=== PATIENT | female | born 1945 | race Caucasian/White ===

== ENCOUNTER 2017-02-16 16:15 | Emergency (ER) | payer MEDICARE ==
[2017-02-16] MEDS ORDERED: SODIUM CHLORIDE 0.9% 1,000 ML IV STA ×2 (16:27)
--- NOTE | 2017-02-16 16:30 | ED ---
Syncope HPI - General Stated Complaint: syncope Time Seen by Provider: 02/16/17 16:15 Source: patient, EMS, RN notes reviewed Mode of arrival: EMS - History of Present Illness Initial Comments: This is a 71-year-old female who was brought in by EMS for evaluation was syncopal episode. She gave blood yesterday she was [place] outside [place] quite a period of time she did not drink much fluid today she apparently passed out and was assisted down the ground by bystanders. She was unresponsive for about a minute and then came to she is brought here by EMS for evaluation she complains of no pain no head neck or back pain focal loss of function to her upper or lower extremities no urinary or fecal incontinence no palpitations or other symptoms. She's never had this happen before. MD Complaint: loss of consciousness - Related Data Home Medications Medication Instructions Recorded Confirmed Aspirin EC [Ecotrin Low Dose] 81 mg PO DAILY 02/16/17 02/16/17 Losartan/Hydrochlorothiazide 1 tab PO DAILY 02/16/17 02/16/17 [Hyzaar 100-25 Tablet] Sertraline HCl [Zoloft] 150 mg PO DAILY 02/16/17 02/16/17 Allergies Allergy/AdvReac Type Severity Reaction Status Date / Time bee venom protein (honey bee) Allergy Anaphylaxis Verified 02/16/17 16:34 Sulfa (Sulfonamide Allergy Rash/Hives Verified 02/16/17 16:34 Antibiotics) Review of Systems ROS Statement: Those systems with pertinent positive or pertinent negative responses have been documented in the HPI. ROS Other: All systems not noted in ROS Statement are negative. General Exam - General Exam Comments Initial Comments: Physical well-developed well-nourished awake alert oriented 3 female General appearance: alert, in no apparent distress Head exam: Present: atraumatic, normocephalic, normal inspection Eye exam: Present: normal appearance, PERRL, EOMI. Absent: scleral icterus, conjunctival injection, periorbital swelling ENT exam: Present: mucous membranes dry Neck exam: Present: normal inspection. Absent: tenderness, meningismus, lymphadenopathy Respiratory exam: Present: normal lung sounds bilaterally. Absent: respiratory distress, wheezes, rales, rhonchi, stridor Cardiovascular Exam: Present: regular rate, normal rhythm, normal heart sounds. Absent: systolic murmur, diastolic murmur, rubs, gallop, clicks GI/Abdominal exam: Present: soft, normal bowel sounds. Absent: distended, tenderness, guarding, rebound, rigid Extremities exam: Present: normal inspection, full ROM, normal capillary refill. Absent: tenderness, pedal edema, joint swelling, calf tenderness Back exam: Present: normal inspection Neurological exam: Present: alert, oriented X3, CN II-XII intact Psychiatric exam: Present: normal affect, normal mood Skin exam: Present: warm, dry, intact, normal color. Absent: rash Course Vital Signs 02/16/17 02/16/17 16:18 17:09 Temperature 98.4 F Pulse Rate 87 74 Respiratory 20 18 Rate Blood Pressure 133/59 146/60 O2 Sat by Pulse 98 99 Oximetry EKG Findings - EKG Results: EKG: interpreted by GERA, sinus rhythm (Sinus rhythm a rate of 85 SC interval 148 QRS 104 QT since QTC of 370/449 left exodeviation no acute ST-T wave changes.) Medical Decision Making - Medical Decision Making Reevaluate the patient Pfizer be awake alert oriented 3 she is in no distress she feels much improved after IV hydration. We did discuss the importance of oral fluids. Her laboratory does show evidence of some renal insufficiency. She was advised of this. She will be discharged with her daughter she is to follow-up with her doctor and return when necessary again she is totally asymptomatic the presentation is consistent with a vasovagal episode. - Lab Data Result diagrams: 02/16/17 16:02 02/16/17 16:02 Lab Results 02/16/17 02/16/17 02/16/17 Range/Units 16:02 16:02 16:02 WBC 9.1 (3.8-10.6) k/uL RBC 4.49 (3.80-5.40) m/uL Hgb 14.0 (11.4-16.0) gm/dL Hct 41.8 (34.0-46.0) % MCV 93.1 (80.0-100.0) fL MCH 31.2 (25.0-35.0) pg MCHC 33.5 (31.0-37.0) g/dL RDW 12.8 (11.5-15.5) % Plt Count 176 (150-450) k/uL Neutrophils % 71 % Lymphocytes % 20 % Monocytes % 6 % Eosinophils % 0 % Basophils % 1 % Neutrophils # 6.5 (1.3-7.7) k/uL Lymphocytes # 1.8 (1.0-4.8) k/uL Monocytes # 0.5 (0-1.0) k/uL Eosinophils # 0.0 (0-0.7) k/uL Basophils # 0.1 (0-0.2) k/uL PT (9.0-12.0) sec INR (<1.2) APTT (22.0-30.0) sec Sodium 142 (137-145) mmol/L Potassium 4.0 (3.5-5.1) mmol/L Chloride 108 H (98-107) mmol/L Carbon Dioxide 23 (22-30) mmol/L Anion Gap 11 mmol/L BUN 37 H (7-17) mg/dL Creatinine 1.53 H (0.52-1.04) mg/dL Est GFR (MDRD) Af Amer 40 (>60 ml/min/1.73 sqM) Est GFR (MDRD) Non-Af 33 (>60 ml/min/1.73 sqM) Glucose 115 H (74-99) mg/dL Calcium 9.5 (8.4-10.2) mg/dL Magnesium 2.0 (1.6-2.3) mg/dL Total Bilirubin 0.4 (0.2-1.3) mg/dL AST 22 (14-36) U/L ALT 28 (9-52) U/L Alkaline Phosphatase 77 (38-126) U/L Total Creatine Kinase 98 (30-135) U/L CK-MB (CK-2) 2.2 (0.0-2.4) ng/mL CK-MB (CK-2) Rel Index 2.2 Troponin I <0.012 (0.000-0.034) ng/mL Total Protein 6.4 (6.3-8.2) g/dL Albumin 3.9 (3.5-5.0) g/dL Urine Color Urine Appearance (Clear) Urine pH (5.0-8.0) Ur Specific [place] (1.001-1.035) Urine Protein (Negative) Urine Glucose (UA) (Negative) Urine Ketones (Negative) Urine Blood (Negative) Urine Nitrite (Negative) Urine Bilirubin (Negative) Urine Urobilinogen (<2.0) mg/dL Ur Leukocyte Esterase (Negative) Urine RBC (0-5) /hpf Urine WBC (0-5) /hpf Ur Squamous Epith Cells (0-4) /hpf Urine Bacteria (None) /hpf Cellular Casts (0) /lpf Hyaline Casts (0-2) /lpf Granular Casts (0) /lpf Urine Mucus (None) /hpf 02/16/17 02/16/17 Range/Units 16:02 16:46 WBC (3.8-10.6) k/uL RBC (3.80-5.40) m/uL Hgb (11.4-16.0) gm/dL Hct (34.0-46.0) % MCV (80.0-100.0) fL MCH (25.0-35.0) pg MCHC (31.0-37.0) g/dL RDW (11.5-15.5) % Plt Count (150-450) k/uL Neutrophils % % Lymphocytes % % Monocytes % % Eosinophils % % Basophils % % Neutrophils # (1.3-7.7) k/uL Lymphocytes # (1.0-4.8) k/uL Monocytes # (0-1.0) k/uL Eosinophils # (0-0.7) k/uL Basophils # (0-0.2) k/uL PT 10.4 (9.0-12.0) sec INR 1.0 (<1.2) APTT 22.3 (22.0-30.0) sec Sodium (137-145) mmol/L Potassium (3.5-5.1) mmol/L Chloride (98-107) mmol/L Carbon Dioxide (22-30) mmol/L Anion Gap mmol/L BUN (7-17) mg/dL Creatinine (0.52-1.04) mg/dL Est GFR (MDRD) Af Amer (>60 ml/min/1.73 sqM) Est GFR (MDRD) Non-Af (>60 ml/min/1.73 sqM) Glucose (74-99) mg/dL Calcium (8.4-10.2) mg/dL Magnesium (1.6-2.3) mg/dL Total Bilirubin (0.2-1.3) mg/dL AST (14-36) U/L ALT (9-52) U/L Alkaline Phosphatase (38-126) U/L Total Creatine Kinase (30-135) U/L CK-MB (CK-2) (0.0-2.4) ng/mL CK-MB (CK-2) Rel Index Troponin I (0.000-0.034) ng/mL Total Protein (6.3-8.2) g/dL Albumin (3.5-5.0) g/dL Urine Color Yellow Urine Appearance Cloudy H (Clear) Urine pH 6.0 (5.0-8.0) Ur Specific [place] 1.016 (1.001-1.035) Urine Protein 1+ H (Negative) Urine Glucose (UA) Negative (Negative) Urine Ketones Negative (Negative) Urine Blood Negative (Negative) Urine Nitrite Negative (Negative) Urine Bilirubin Negative (Negative) Urine Urobilinogen 2.0 (<2.0) mg/dL Ur Leukocyte Esterase Large H (Negative) Urine RBC 2 (0-5) /hpf Urine WBC 14 H (0-5) /hpf Ur Squamous Epith Cells 11 H (0-4) /hpf Urine Bacteria Few H (None) /hpf Cellular Casts 5 (0) /lpf Hyaline Casts 156 H (0-2) /lpf Granular Casts 7 (0) /lpf Urine Mucus Few H (None) /hpf - Radiology Data Radiology results: report reviewed, image reviewed Disposition Clinical Impression: Vasovagal syncope, Dehydration Disposition: HOME SELF-CARE Condition: Good Referrals: Nonstaff,Physician [REFERRING] - 1-2 days
[2017-02-16 16:41] LABS: Basophils # (A) 0.1 k/uL (0-0.2); Basophils % (A) 1 %; CH 30.2; CHCM 32.6; Eosinophils % (A) 0 %; HCT 41.8 % (34.0-46.0); HDW 2.07; Luc # (Auto) 0.25; Luc % (Auto) 3; Lymphocytes # (A) 1.8 k/uL (1.0-4.8); Lymphocytes % (A) 20 %; MCH 31.2 pg (25.0-35.0); MCHC 33.5 g/dL (31.0-37.0); MCV 93.1 fL (80.0-100.0); Mean Platelet Volume 10.1; Monocytes # (A) 0.5 k/uL (0-1.0); Monocytes % (A) 6 %; Neutrophils # (A) 6.5 k/uL (1.3-7.7); Neutrophils % (A) 71 %; RBC 4.49 m/uL (3.80-5.40); RDW 12.8 % (11.5-15.5); WBC 9.1 k/uL (3.8-10.6); WBC (Perox) 9.06
[2017-02-16 16:50] LABS: Partial Thromboplastin Time 22.3 sec (22.0-30.0); Prothrombin Time 10.4 sec (9.0-12.0)
[2017-02-16 16:58] LABS: Calcium 9.5 mg/dL (8.4-10.2); Total Bilirubin 0.4 mg/dL (0.2-1.3); Total Protein 6.4 g/dL (6.3-8.2)
[2017-02-16 17:01] LABS: Creatine Kinase 98 U/L (30-135)
[2017-02-16 17:04] LABS: Appearance,Urine Cloudy (Clear); Bacteria,Urine Few /hpf; Bilirubin,Urine Negative (Negative); Glucose,Urine (UA) Negative (Negative); Granular Casts,Urine 7 /lpf (0); Ketones,Urine Negative (Negative); Leukocyte Esterase,Urine Large (Negative); Mucus,Urine Few /hpf; Nitrite,Urine Negative (Negative); Particle Count 13552; Protein,Urine 1+ (Negative); RBC,Urine 2 /hpf (0-5); Specific Gravity,Urine 1.016 (1.001-1.035); Squamous Epithelial Cell,Urine 11 /hpf (0-4); UA Billing (MACRO vs. MICRO) MICRO; WBC,Urine 14 /hpf (0-5)
[2017-02-16 17:14] LABS: Creatine Kinase MB 2.2 ng/mL (0.0-2.4); Troponin I <0.012 ng/mL (0.000-0.034)
--- NOTE | 2017-02-16 17:29 | XR ---
EXAMINATION TYPE: XR chest 2V DATE OF EXAM: 02/16/2017 COMPARISON: NONE HISTORY: Syncope TECHNIQUE: Frontal and lateral views of the chest are obtained. FINDINGS: There is no focal air space opacity, pleural effusion, or pneumothorax seen. The cardiac silhouette size is within normal limits. The osseous structures are intact. IMPRESSION: No acute cardiopulmonary process.
[2017-02-16 18:26] VITALS: BP 144/73; PULSE 64; RESP 16; TEMP 98
== END 2017-02-16 18:26 | disposition home or self-care (01) ==
LOC: EC 16:15
DX: E86.0 Dehydration (principal); N28.9 Disorder of kidney and ureter, unspecified; I10 Essential (primary) hypertension; F32.9 Major depressive disorder, single episode, unspecified; Z79.82 Long term (current) use of aspirin; Z79.899 Other long term (current) drug therapy; Z88.2 Allergy status to sulfonamides; Z91.030 Bee allergy status
CPT/HCPCS: 36415; 71020; 80053; 81001; 82550; 82553; 83735; 84484; 85025; 85610; 85730; 93005; 96360; 96361; 99284

== ENCOUNTER 2019-10-09 14:00 | Inpatient (IN) | payer MEDICARE, OTHER ==
[2019-10-09] MEDS ORDERED: cefTRIAXone IN SWFI 1,000 MG/10 ML SYRINGE IVP STA ×2 (14:44→19:05)
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
--- NOTE | 2019-10-09 15:08 | XR ---
EXAMINATION TYPE: XR pelvis AP view DATE OF EXAM: 10/09/2019 CLINICAL HISTORY: Pelvic pain after fall TECHNIQUE: A single AP view of the pelvis is obtained. COMPARISON: None. FINDINGS: There is no acute fracture/dislocation evident in the pelvis. The hip and sacroiliac join ts appear symmetric and unremarkable. The overlying soft tissue appears unremarkable. Slight scleros is is noted of the left pubic bone in comparison the right. Degenerative changes of the lumbosacral j unction. IMPRESSION: There is no acute fracture or dislocation in the pelvis. Slight sclerosis of the left pu bic bone in comparison to the right. Nonemergent CT pelvis or nuclear medicine bone scan could furthe r assess this finding.
--- NOTE | 2019-10-09 15:09 | XR ---
EXAMINATION TYPE: XR chest 1V portable DATE OF EXAM: 10/09/2019 COMPARISON: 02/16/2017 HISTORY: Chest pain after fall TECHNIQUE: Single frontal view of the chest is obtained. FINDINGS: There are low lung volumes in comparison the prior exaggerated in the pulmonary vasculature and cardiomediastinal silhouette size. There is no focal air space opacity, pleural effusion, or pn eumothorax seen. The cardiac silhouette size is mildly enlarged. The osseous structures are intact . IMPRESSION: Low lung volumes exaggerate the pulmonary vasculature and cardiomediastinal silhouette s ize. No acute cardiopulmonary process.
--- NOTE | 2019-10-09 15:42 | CT ---
EXAMINATION TYPE: CT brain keithine wo con DATE OF EXAM: 10/09/2019 COMPARISON: None HISTORY: Fall with head injury CT DLP: 1490.8 mGycm Automated exposure control for dose reduction was used. TECHNIQUE: CT scan of the head and cervical spine are performed without contrast. FINDINGS: There is no acute intracranial hemorrhage, mass effect, or midline shift identified. The ventricles and sulci are compatible with moderate degenerative change. There is low-attenuation in t he right frontal lobe suggestive of previous infarct. Nonspecific faint changes in the white matter a re suggestive of remote microvascular ischemia.. The globes are intact and the visualized sinuses ar e clear. Assessment cervical spinal canal is limited due to artifact and resolution. Moderate to severe degene rative disc disease and hypertrophic changes at C5-C6. Mild bilateral foraminal encroachment. Apical pleural thickening and areas of subsegmental consolidation are noted likely in the basis of atelectas is. IMPRESSION: 1. There is no acute fracture or dislocation evident in the cervical spine. Degenerative changes with foraminal encroachment C5-C6. Follow-up with MRI as clinically warranted 2. No acute intracranial hemorrhage, mass effect, or midline shift is seen. Degenerative changes with remote infarct right frontal lobe.
[2019-10-09 16:07] LABS: Basophils % (A) 0 %; Eosinophils % (A) 0 %; HCT 44.3 % (34.0-46.0); HGB 14.4 gm/dL (11.4-16.0); Lymphocytes # (A) 0.3 k/uL (1.0-4.8); Lymphocytes % (A) 2 %; MCH 29.9 pg (25.0-35.0); MCHC 32.5 g/dL (31.0-37.0); MCV 91.9 fL (80.0-100.0); Mean Platelet Volume 9.8; Monocytes # (A) 0.6 k/uL (0-1.0); Monocytes % (A) 3 %; Neutrophils # (A) 16.6 k/uL (1.3-7.7); Neutrophils % (A) 93 %; Platelet Count 126 k/uL (150-450); RBC 4.82 m/uL (3.80-5.40); RDW 13.2 % (11.5-15.5); WBC 17.8 k/uL (3.8-10.6)
[2019-10-09 16:14] LABS: Calcium 9.2 mg/dL (8.4-10.2); Potassium 4.4 mmol/L (3.5-5.1)
[2019-10-09] MEDS ORDERED: SODIUM CHLORIDE 0.9% 1,000 ML IV STA (16:41)
[2019-10-09 18:02] LABS: Appearance,Urine Turbid (Clear); Bacteria,Urine Many /hpf; Bilirubin,Urine Negative (Negative); Blood,Urine Moderate (Negative); Budding Yeast,Urine Moderate /hpf; Color,Urine Yellow; Glucose,Urine (UA) Negative (Negative); Hyaline Casts,Urine 6 /lpf (0-2); Ketones,Urine Negative (Negative); Leukocyte Esterase,Urine Large (Negative); Mucus,Urine Rare /hpf; Nitrite,Urine Negative (Negative); PH, Urine 5.5 (5.0-8.0); Protein,Urine 2+ (Negative); RBC,Urine 18 /hpf (0-5); Specific Gravity,Urine 1.019 (1.001-1.035); Urobilinogen,Urine <2.0 mg/dL (<2.0); WBC,Urine >182 /hpf (0-5)
[2019-10-09] MEDS ORDERED: ONDANSETRON 4 MG/2 ML VIAL IVP PRN (18:10)
[2019-10-09] MEDS ORDERED: NALOXONE 0.4 MG/ML 1 ML VIAL IV PRN (18:10)
[2019-10-09] MEDS: ACETAMINOPHEN TAB 325 MG TAB PO PRN (19:11)
[2019-10-10] MEDS: SODIUM CHLORIDE 0.9% 1,000 ML IV SCH ×4 (00:27→19:57)
[2019-10-10] MEDS: ACETAMINOPHEN TAB 325 MG TAB PO PRN ×3 (02:34→17:32)
[2019-10-10] MEDS ORDERED: SERTRALINE 100 MG TAB PO SCH (09:00)
[2019-10-10] MEDS ORDERED: cefTRIAXone IN SWFI 1,000 MG/10 ML SYRINGE IVP SCH (09:00)
[2019-10-10] MEDS: CLOPIDOGREL 75 MG TAB PO SCH (09:11)
[2019-10-10] MEDS: ATORVASTATIN 20 MG TAB PO SCH (09:11)
[2019-10-10] MEDS: SERTRALINE 50 MG TAB PO SCH (09:11)
[2019-10-10 09:20] LABS: HCT 40.3 % (34.0-46.0); HGB 12.7 gm/dL (11.4-16.0); MCH 29.1 pg (25.0-35.0); MCHC 31.5 g/dL (31.0-37.0); MCV 92.4 fL (80.0-100.0); RBC 4.36 m/uL (3.80-5.40); RDW 13.2 % (11.5-15.5); WBC 14.6 k/uL (3.8-10.6)
[2019-10-10 09:30] LABS: Albumin 3.1 g/dL (3.5-5.0); Calcium 8.5 mg/dL (8.4-10.2); Potassium 4.3 mmol/L (3.5-5.1); Total Bilirubin 0.5 mg/dL (0.2-1.3); Total Protein 6.2 g/dL (6.3-8.2)
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
[2019-10-10 09:45] LABS: Platelet Count 133 k/uL (150-450)
[2019-10-10] MEDS: PANTOPRAZOLE 40 MG TABLET PO SCH (10:39)
[2019-10-10] MEDS ORDERED: ARTIFICIAL TEARS-HYPROMELLOSE DROPS 15 ML BTL BOTH EYES PRN (11:47)
[2019-10-10] MEDS: GABAPENTIN 300 MG CAP PO SCH (19:58)
[2019-10-10] MEDS: HEPARIN SODIUM,PORCINE 5,000 UNIT/ML 1 ML VIAL SQ SCH (19:59)
--- NOTE | 2019-10-11 00:21 | P.CONS ---
History of Present Illness - Reason for Consult Consult date: 10/10/19 UTI Requesting physician: Phani Estevez - Chief Complaint FALL x 1 day and urinary frequency and burning x few days - History of Present Illness Patient is a 74-year-old female presenting to the ER at [facility] with chief complaints of fall landing on her left side and unable to stand up the patient also been complaining of urinary burning frequency and some suprapubic discomfort but no flank pain some nausea but no vomiting denies having any chest pain shortness of breath or cough with the symptom the patient was evaluated by the ER physician on arrival to the ER patient did have a low- grade fever of 99.9 patient did have elevated white count 17,000 creatinine was 2.83 urine was positive with large leukocyte esterase and more than 10 WBC patient has been admitted to hospital which was started on Rocephin 1 g daily infectious disease was consulted for further recommendation about antibiotic patient did have a chest x-ray shows lower lung volumes but no acute cardiopulmonary process. Review of Systems Positive point has been mentioned in HPI rest of the systems are negative Past Medical History Past Medical History: CVA/TIA, Hypertension Additional Past Medical History / Comment(s): Chronic UTI's History of Any Multi-Drug Resistant Organisms: None Reported Past Surgical History: Orthopedic Surgery, Tonsillectomy Additional Past Surgical History / Comment(s): Left lower fracture with plates and screws, bilateral cataract removal and intraocular lens implants, left knee arthroscopically, breast biopsy benign Past Psychological History: Depression Smoking Status: Never smoker Past Alcohol Use History: None Reported Additional Past Alcohol Use History / Comment(s): The patient is a lifelong nonsmoker, no marijuana, no illicit drug use, no alcohol use. Patient lives alone at [facility]. Past Drug Use History: None Reported - Past Family History Father Additional Family Medical History / Comment(s): Father in his 80s from heart failure. Mother Additional Family Medical History / Comment(s): Mother in her 80s from heart failure. Brother(s) Additional Family Medical History / Comment(s): Patient has 1 brother that at age 62 from a myocardial infarction. Patient does not have any sisters. Daughter(s) Additional Family Medical History / Comment(s): Patient has 2 daughters one is mentally impaired with cerebral palsy. Second daughter has no major medical problems. Medications and Allergies Home Medications Medication Instructions Recorded Confirmed Type Sertraline HCl [Zoloft] 50 mg PO DAILY 02/16/17 10/09/19 History Atorvastatin [Lipitor] 20 mg PO DAILY 10/09/19 10/09/19 History Cefuroxime [Ceftin] 250 mg PO Q12H 10/09/19 10/09/19 History Clopidogrel [Plavix] 75 mg PO DAILY 10/09/19 10/09/19 History Gabapentin [Neurontin] 300 mg PO HS 10/09/19 10/09/19 History Losartan [Cozaar] 50 mg PO DAILY 10/09/19 10/09/19 History Oxybutynin Chloride [Ditropan XL] 10 mg PO DAILY 10/09/19 10/09/19 History Sertraline [Zoloft] 100 mg PO DAILY 10/09/19 10/09/19 History Allergies Allergy/AdvReac Type Severity Reaction Status Date / Time bee venom protein (honey bee) Allergy Anaphylaxis Verified 10/09/19 20:40 Sulfa (Sulfonamide Allergy Rash/Hives Verified 10/09/19 20:40 Antibiotics) Physical Exam Vitals: Vital Signs Temp Pulse Pulse Resp BP BP Pulse Ox 10/10/19 14:07 98.5 F 70 16 120/60 93 L 10/10/19 07:20 98.4 F 78 16 126/79 97 10/10/19 07:00 78 16 10/10/19 04:27 98.8 F 10/10/19 03:07 18 10/10/19 02:54 88 18 118/81 97 10/10/19 00:00 18 10/09/19 23:44 99.0 F 96 18 113/74 95 10/09/19 20:00 18 10/09/19 19:09 99.9 F H 104 H 16 135/84 97 10/09/19 19:03 99.9 F H 104 H 16 135/84 97 10/09/19 17:02 93 18 109/61 96 Intake and Output 10/10/19 10/10/19 10/10/19 06:59 14:59 22:59 Intake Total 1440 Output Total 800 Balance 1440 -800 Intake: Intake, IV Titration 1440 Amount Sodium Chloride 0.9% 1, 1440 000 ml @ 120 mls/hr IV . Q8H20M [facility] Rx#:[id number] Output: Urine 800 Other: Voiding Method Bedpan Bedpan Diaper Diaper Incontinent Incontinent # Voids 2 # Bowel Movements 1 GENERAL DESCRIPTION: Elderly female lying in bed, no distress. No tachypnea or accessory muscle of respiration use. HEENT: Shows Pallor , no scleral icterus. Oral mucous membrane is dry. NECK: Trachea central, no thyromegaly. LUNGS: Unlabored breathing. Clear to auscultation anteriorly. No wheeze or crackle. HEART: S1, S2, regular rate and rhythm. ABDOMEN: Soft, no tenderness , guarding or rigidity EXTREMITIES: No edema of feet. SKIN: No rash, no masses palpable. NEUROLOGICAL: The patient is awake, alert, oriented x3, mood and affect normal. Results CBC & Chem 7: 10/10/19 08:56 10/10/19 08:56 Labs: Abnormal Lab Results - Last 24 Hours (Table) 10/09/19 10/10/19 10/10/19 Range/Units 17:50 08:56 08:56 WBC 14.6 H (3.8-10.6) k/uL Plt Count 133 L (150-450) k/uL Sodium 136 L (137-145) mmol/L BUN 47 H (7-17) mg/dL Creatinine 1.77 H (0.52-1.04) mg/dL Glucose 104 H (74-99) mg/dL AST 44 H (14-36) U/L ALT 44 H (4-34) U/L Total Protein 6.2 L (6.3-8.2) g/dL Albumin 3.1 L (3.5-5.0) g/dL Urine Appearance Turbid H (Clear) Urine Protein 2+ H (Negative) Urine Blood Moderate H (Negative) Ur Leukocyte Esterase Large H (Negative) Urine RBC 18 H (0-5) /hpf Urine WBC >182 H (0-5) /hpf Urine WBC Clumps Many H (None) /hpf Urine Bacteria Many H (None) /hpf Hyaline Casts 6 H (0-2) /lpf Urine Mucus Rare H (None) /hpf Urine Yeast (Budding) Moderate H (None) /hpf Microbiology - Last 24 Hours (Table) 10/09/19 17:50 Urine Culture - Preliminary Urine,Voided Assessment and Plan Assessment: -patient presented to hospital after the patient did have a fall and unable to get up complaining of feeling weak and did have urinary symptoms of burning frequency and some suprapubic discomfort with a positive UA and elevated white count likely asymptomatic and urinary tract infection and likely from enteric gram-negative pathogen (1) UTI (urinary tract infection) Current Visit: Yes Status: Acute Code(s): N39.0 - URINARY TRACT INFECTION, SITE NOT SPECIFIED SNOMED Code(s): 51103476 Plan: 1-we will adjust the dose of Rocephin to 2 g daily 2-gentle IV fluid 3- check US of kidneys and bladder area We will follow on clinical condition and cultures to further adjust medication if needed Thank you for this consultation we will follow the patient along with you Time with Patient: Greater than 30
[2019-10-11] MEDS: PANTOPRAZOLE 40 MG TABLET PO SCH (07:06)
[2019-10-11 07:17] LABS: HCT 37.1 % (34.0-46.0); HGB 12.2 gm/dL (11.4-16.0); MCHC 32.8 g/dL (31.0-37.0); MCV 91.7 fL (80.0-100.0); Mean Platelet Volume 10.4; Platelet Count 129 k/uL (150-450); RBC 4.05 m/uL (3.80-5.40); WBC 12.5 k/uL (3.8-10.6)
[2019-10-11 07:46] LABS: Calcium 8.1 mg/dL (8.4-10.2); Potassium 3.9 mmol/L (3.5-5.1)
[2019-10-11] MEDS: SODIUM CHLORIDE 0.9% 1,000 ML IV SCH (08:13)
[2019-10-11] MEDS: CLOPIDOGREL 75 MG TAB PO SCH (08:14)
[2019-10-11] MEDS: SERTRALINE 50 MG TAB PO SCH (08:14)
[2019-10-11] MEDS: ATORVASTATIN 20 MG TAB PO SCH (08:14)
[2019-10-11] MEDS: HEPARIN SODIUM,PORCINE 5,000 UNIT/ML 1 ML VIAL SQ SCH ×2 (08:15→20:45)
--- NOTE | 2019-10-11 11:14 | US ---
EXAMINATION TYPE: US kidneys/renal and bladder DATE OF EXAM: 10/11/2019 COMPARISON: NONE CLINICAL HISTORY: frequent UTI. EXAM MEASUREMENTS: Right Kidney: 11.4 x 4.6 x 5.1 cm Left Kidney: 13.5 x 6.8 x 6.9 cm Right Kidney: No hydronephrosis or masses seen Left Kidney: No hydronephrosis or masses seen Bladder: layering sludge/sediment on bladder wall Bilateral Jets seen: No Incidental note is made of shadowing mobile gallstones when scanning right kidney. There is no evidence for hydronephrosis at this point in time. No nephrolithiasis is seen. No renal masses are identified on images saved.. The urinary bladder is not greatly distended. Bladder not c ompletely anechoic with dependent debris. Bilateral ureteral jets are not seen. IMPRESSION: No hydronephrosis seen bilaterally. Dependent debris in bladder could reflect blood produ ct or product of recent hemorrhagic or pyogenic cystitis, correlate clinically.
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
[2019-10-11] MEDS: LOSARTAN 50 MG TAB PO SCH (14:33)
[2019-10-11] MEDS: MELATONIN 3 MG TABLET PO SCH (20:45)
[2019-10-11] MEDS: GABAPENTIN 300 MG CAP PO SCH (20:45)
[2019-10-12 07:06] LABS: HCT 37.8 % (34.0-46.0); HGB 12.5 gm/dL (11.4-16.0); MCH 30.7 pg (25.0-35.0); MCHC 33.1 g/dL (31.0-37.0); MCV 92.7 fL (80.0-100.0); Mean Platelet Volume 9.7; Platelet Count 158 k/uL (150-450); RBC 4.08 m/uL (3.80-5.40); RDW 13.4 % (11.5-15.5); WBC 10.5 k/uL (3.8-10.6)
[2019-10-12 07:22] LABS: Albumin 2.7 g/dL (3.5-5.0); Calcium 8.6 mg/dL (8.4-10.2); Potassium 3.8 mmol/L (3.5-5.1); Total Bilirubin 0.3 mg/dL (0.2-1.3); Total Protein 5.6 g/dL (6.3-8.2)
--- NOTE | 2019-10-12 08:54 | PN ---
PROGRESS NOTE DATE OF SERVICE: 10/11/2019. REASON FOR FOLLOWUP: Urinary tract infection. INTERVAL HISTORY: The patient is currently afebrile. The patient has been breathing comfortably. Denies having any chest pain. No cough. No nausea or vomiting. No abdominal pain or diarrhea. PHYSICAL EXAMINATION: Blood pressure 155/78 with a pulse of 73, temperature 98.3. General description is an elderly female lying in bed in no distress. Respiratory system: Unlabored breathing. Decreased breath sounds in the bases. No wheeze. Heart S1, S2. Regular rate and rhythm. ABDOMEN: Soft, no tenderness. LABS: Hemoglobin is 12.2, with white count 12.5, creatinine 1.10. DIAGNOSTIC IMPRESSION AND PLAN: Patient with gram-negative urinary tract infection for which the patient continues on Rocephin while waiting for final ID sensitivities and monitor clinical course closely. Continue supportive care. MMHUEYL / ANNAMARIEN: [id number] /
[2019-10-12] MEDS: PANTOPRAZOLE 40 MG TABLET PO SCH (09:43)
[2019-10-12] MEDS: SERTRALINE 50 MG TAB PO SCH (09:43)
[2019-10-12] MEDS: LOSARTAN 50 MG TAB PO SCH (09:43)
[2019-10-12] MEDS: HEPARIN SODIUM,PORCINE 5,000 UNIT/ML 1 ML VIAL SQ SCH ×2 (09:43→21:21)
[2019-10-12] MEDS: ATORVASTATIN 20 MG TAB PO SCH (09:43)
[2019-10-12] MEDS: CLOPIDOGREL 75 MG TAB PO SCH (09:43)
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
[2019-10-12] MEDS: BETHANECHOL 25 MG TAB PO SCH ×2 (15:38→21:22)
[2019-10-12] MEDS ORDERED: IMIPRAMINE 25 MG TAB PO SCH (21:00)
[2019-10-12] MEDS: MELATONIN 3 MG TABLET PO SCH (21:22)
[2019-10-12] MEDS: GABAPENTIN 300 MG CAP PO SCH (21:22)
--- NOTE | 2019-10-13 06:47 | PN ---
PROGRESS NOTE DATE OF SERVICE: 10/12/2019 REASON FOR FOLLOWUP: E coli urinary tract infection. INTERVAL HISTORY: The patient is currently afebrile. She has been breathing comfortably. Denies having any chest pain. No shortness of breath or cough. No nausea or vomiting. No abdominal pain or diarrhea. PHYSICAL EXAMINATION: Blood pressure 152/83 with a pulse of 67, temperature 98.7. She is 97% on room air. General description is an elderly female up in the chair in no distress. RESPIRATORY SYSTEM: Unlabored breathing, clear to auscultation anteriorly. HEART: S1, S2. Regular rate and rhythm. ABDOMEN: Soft, no tenderness. LABS: Urine has been finalized with an E coli. Blood culture negative. Ultrasound did not show any hydronephrosis structure abnormality. White count normal at 10,000. DIAGNOSTIC IMPRESSION AND PLAN: Patient with Escherichia coli urinary tract infection which is sensitive pathogen in this patient who has shown overall clinical improvement on Rocephin, to finish therapy with either Cipro or Ceftin for about a week and close outpatient followup. MMODL / IJN: [id number] /
[2019-10-13 07:00] VITALS: RESP 17
[2019-10-13] MEDS: LOSARTAN 50 MG TAB PO SCH (07:00)
[2019-10-13] MEDS: PANTOPRAZOLE 40 MG TABLET PO SCH (07:00)
[2019-10-13] MEDS: ATORVASTATIN 20 MG TAB PO SCH (07:00)
[2019-10-13] MEDS: HEPARIN SODIUM,PORCINE 5,000 UNIT/ML 1 ML VIAL SQ SCH (07:01)
[2019-10-13] MEDS: CLOPIDOGREL 75 MG TAB PO SCH (07:01)
[2019-10-13] MEDS: SERTRALINE 50 MG TAB PO SCH (07:01)
[2019-10-13] MEDS: BETHANECHOL 25 MG TAB PO SCH ×2 (08:31→16:16)
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
--- NOTE | 2019-10-13 13:33 | PN ---
PROGRESS NOTE DATE OF SERVICE: 10/13/2019. REASON FOR FOLLOWUP: E coli urinary tract infection. INTERVAL HISTORY: The patient is currently afebrile. The patient has been breathing comfortably. The patient denies having any chest pain or shortness of breath or cough. No abdominal pain. No diarrhea. PHYSICAL EXAMINATION: Blood pressure 141/92 with a pulse of 91, temperature 96.9. She is 97% on room air. General description is an elderly female up in the chair in no distress. RESPIRATORY SYSTEM: Unlabored breathing, clear to auscultation anteriorly. HEART: S1, S2. Regular rate and rhythm. ABDOMEN: Soft, no tenderness. LABS: No new labs have been obtained today. Blood culture has been negative. DIAGNOSTIC IMPRESSION AND PLAN: Patient with Escherichia coli urinary tract infection in this patient who has shown overall clinical improvement on Rocephin. She will finish therapy with oral Ceftin and continue with supportive care. MMODL / IJN: [id number] /
[2019-10-13 16:35] VITALS: BP 135/69; PULSE 78; TEMP 98.7
== END 2019-10-13 18:16 | DRG 871 ==
LOC: EC 14:00 → 4SSUR 18:10
PROVIDERS: ADMIT Internal Medicine; ATTEND Internal Medicine
DX: A41.9 Sepsis, unspecified organism (principal); G93.41 Metabolic encephalopathy; N17.9 Acute kidney failure, unspecified; F33.9 Major depressive disorder, recurrent, unspecified; N39.0 Urinary tract infection, site not specified; I69.354 Hemiplegia and hemiparesis following cerebral infarction affecting left non-dominant side; R26.9 Unspecified abnormalities of gait and mobility; N32.81 Overactive bladder; R32 Unspecified urinary incontinence; R19.7 Diarrhea, unspecified; B96.20 Unspecified Escherichia coli [E. coli] as the cause of diseases classified elsewhere; N63.10 Unspecified lump in the right breast, unspecified quadrant; W01.0XXA Fall on same level from slipping, tripping and stumbling without subsequent striking against object, initial encounter; I11.9 Hypertensive heart disease without heart failure; I10 Essential (primary) hypertension; Z96.1 Presence of intraocular lens; Z79.899 Other long term (current) drug therapy; Z79.82 Long term (current) use of aspirin; Z88.2 Allergy status to sulfonamides; Z91.030 Bee allergy status; Z87.440 Personal history of urinary (tract) infections; Z90.89 Acquired absence of other organs; Z98.890 Other specified postprocedural states; Z98.42 Cataract extraction status, left eye; Z98.41 Cataract extraction status, right eye; Z82.49 Family history of ischemic heart disease and other diseases of the circulatory system; Z79.02 Long term (current) use of antithrombotics/antiplatelets
CPT/HCPCS: 36415; 70450; 71045; 72125; 72170; 76770; 80048; 80053; 81001; 85025; 85027; 87040; 87077; 87086; 87186; 93005; 96360; 96361; 99285

== ENCOUNTER → 2020-01-05 | Outpatient (CLI) | payer MEDICARE, OTHER ==
--- NOTE | 2020-01-06 11:58 | MM ---
Reason for exam: clinical finding. Last mammogram was performed 1 year and 6 months ago. History: Patient is postmenopausal. Benign stereotactic core biopsy of the right breast, 2019. Benign stereotactic core biopsy of the right breast, 2018. Indicated problem(s): lump or thickening in the right breast. Physical Findings: Nurse Summary: 1.5 x 1cm nodule int he right breast at 1 o'clock, a 0.5 x 0.5cm nodule in the right breast at 2 o'clock and a 1 x 1cm nodule the right breast at 4 o'clock (nurse ts). MG 3D Diag Mammo W/Cad SILVANA Bilateral CC and MLO view(s) were taken. Prior study comparison: July 19, 2018, mammogram. July 17, 2017, mammogram. January 19, 2017, mammogram. There are scattered fibroglandular densities. Previous mammotome biopsy in the right breast. There is chronic nodularity in the right breast. Right subareolar focal asymmetry is unchanged. Regional course calcifications 9 o'clock right breast unchanged. Three palpable markers medially with new areas of fat necrosis/early oil cyst formation. These results were verbally communicated with the patient and result sheet given to the patient on 01/05/20. ASSESSMENT: Incomplete: need additional imaging evaluation, BI-RAD 0 RECOMMENDATION: Ultrasound of the right breast.
--- NOTE | 2020-01-06 12:03 | USB ---
Reason for exam: additional evaluation requested from abnormal screening. History: Patient is postmenopausal. Benign stereotactic core biopsy of the right breast, 2019. Benign stereotactic core biopsy of the right breast, 2018. US Breast RT Right complete breast ultrasound includes all four quadrants, the retroareolar region and axilla. Finding demonstrates a 4 x 4 x 5mm oval, mixed lesion at 2 o'clock, 6 month follow up recommended, possible tiny oil cyst, a 9 x 6 x 10mm oval, solid, hypoechoic lesion at 2 o'clock BB, despite this appearing solid, no high density suspicious mass is seen on mammogram, 6 month follow up recommended and a 4 x 4 x 4mm oval, hypoechoic, vascular lesion at 11 o'clock, possible intramammary node, 6 month follow up recommended. These results were verbally communicated with the patient and result sheet given to the patient on 01/05/20. ASSESSMENT: Probably benign, BI-RAD 3 RECOMMENDATION: Follow-up diagnostic mammogram and ultrasound of the right breast in 6 months.
== END | disposition home or self-care (01) ==
LOC: RADMAMWWP 12:58
PROVIDERS: ATTEND Internal Medicine
DX: R92.8 Other abnormal and inconclusive findings on diagnostic imaging of breast (principal)
CPT/HCPCS: 77066; 76641; G0279; 77062

== ENCOUNTER → 2024-01-29 | Outpatient (CLI) | payer MEDICARE ==
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
== END | disposition home or self-care (01) ==
LOC: RADXRMAIN 14:40
PROVIDERS: ATTEND Internal Medicine
DX: S82.52XA Displaced fracture of medial malleolus of left tibia, initial encounter for closed fracture (principal); M19.072 Primary osteoarthritis, left ankle and foot; M20.12 Hallux valgus (acquired), left foot; M85.872 Other specified disorders of bone density and structure, left ankle and foot

== ENCOUNTER → 2024-01-29 | Outpatient (CLI) | payer MEDICARE ==
--- NOTE | 2024-01-29 16:21 | US ---
EXAMINATION TYPE: US carotid duplex BILAT DATE OF EXAM: 01/29/2024 COMPARISON: NONE CLINICAL INDICATION: Female, 78 years old with history of I63.49 CEREBRAL INFRACTION DUE TO EMBOLISM; Hx stroke 5 years ago. TECHNIQUE: Carotid duplex ultrasound examination. Indirect Doppler criteria was utilized. FINDINGS: EXAM MEASUREMENTS: RIGHT: Peak Systolic Velocity (PSV) cm/sec ----- Right CCA: 93.0 ----- Right ICA: 87.5 ----- Right ECA: 68.0 ICA/CCA ratio: 0.9 RIGHT: End Diastole cm/sec ----- Right CCA: 11.7 ----- Right ICA: 27.0 ----- Right ECA: 8.7 LEFT: Peak Systolic Velocity (PSV) cm/sec ----- Left CCA: 62.5 ----- Left ICA: 109.5 ----- Left ECA: 77.9 ICA/CCA ratio: 1.8 LEFT: End Diastole cm/sec ----- Left CCA: 15.4 ----- Left ICA: 29.2 ----- Left ECA: 0.0 VERTEBRALS (direction of flow): Right Vertebral: Antegrade Left Vertebral: Antegrade Rhythm: Normal [employer]OR [employer]OMICS NOTES: No elevated velocities. Intimal thickening seen bilaterally. Plaque seen within th e left bulb. IMPRESSION: Less than 50% stenosis of the bilateral carotid bifurcations. Criteria for Assigning % of Stenosis / Diameter reduction (Estimation based on the indirect measurements of the internal carotid artery velocities (ICA PSV). 1. Normal (no stenosis)=ICA PSV < 125 cm/s: ratio < 2.0: ICA EDV<40 cm/s. 2. Less than 50% stenosis=ICA PSV < 125 cm/s: ratio < 2.0: ICA EDV<40 cm/s. 3. 50 to 69% stenosis=ICA PSV of 125 to 230 cm/s: ration 2.0 ? 4.0: ICA EDV 40-100 cm/s. 4. Greater than 70% stenosis to near occlusion= ICA PSV > 230 cm/s: ratio > 4.0: ICA EDV > 100 cm/s. 5. Near occlusion= ICA PSV velocities may be low or undetectable: variable ratio and ICA EDV. 6. Total occlusion=unable to detect flow.
--- NOTE | 2024-01-30 12:29 | CA ---
Transthoracic Echo Report Name: Chiquis Iniguez Age: 78 Gender: F : 1945 Exam Date: 01/29/2024 13:17 Exam Location: [facility] Ht (in): 66 Wt (lb): 240 Ordering Physician: Phani Estevez MD Attending/Referring Phys: Phani Estevez MD [employer] Maira Wilkinson, RDMARY Procedure CPT: Indications: I63.49 CVA Cardiac Hx: Technical Quality: Fair Contrast 1: Total Dose (mL): Contrast 2: Total Dose (mL): MEASUREMENTS (Male / Female) Normal Values 2D ECHO LV Diastolic Diameter PLAX 4.5 cm 4.2 - 5.9 / 3.9 - 5.3 cm LV Systolic Diameter PLAX 2.5 cm IVS Diastolic Thickness 0.8 cm 0.6 - 1.0 / 0.6 - 0.9 cm LVPW Diastolic Thickness 1.1 cm 0.6 - 1.0 / 0.6 - 0.9 cm LV Relative Wall Thickness 0.4 RV Internal Dim ED PLAX 1.7 cm LA Systolic Diameter LX 3.5 cm 3.0 - 4.0 / 2.7 - 3.8 cm LV Diastolic Volume MOD BP 56.1 cm??? 67 - 155 / 56 - 104 cm??? LV Systolic Volume MOD BP 15.8 cm??? / 19 - 49 cm??? LV Ejection Fraction MOD BP 71.9 % >= 55 % LV Cardiac Index MOD BP 1312.3 cm???/min???m??? LV Diastolic Volume MOD 4C 59.1 cm??? LV Systolic Volume MOD 4C 16.6 cm??? LV Ejection Fraction MOD 4C 71.9 % LV Cardiac Index MOD 4C 1385.8 cm???/min???m??? LV Diastolic Length 4C 7.4 cm LV Systolic Length 4C 6.2 cm LV Diastolic Volume MOD 2C 42.7 cm??? LV Systolic Volume MOD 2C 13.3 cm??? LV Ejection Fraction MOD 2C 68.9 % LV Cardiac Index MOD 2C 958.7 cm???/min???m??? LV Diastolic Length 2C 5.9 cm LV Systolic Length 2C 5.4 cm LA Volume 38.3 cm??? - / 22 - 52 cm??? LA Volume Index 16.6 cm???/m??? 16 - 28 cm???/m??? M-MODE Aortic Root Diameter MM 2.9 cm LA Systolic Diameter MM 3.7 cm LA Ao Ratio MM 1.3 AV Cusp Separation MM 1.5 cm DOPPLER AV Peak Velocity 179.3 cm/s AV Peak Gradient 12.9 mmHg AV Mean Velocity 129.7 cm/s AV Mean Gradient 7.6 mmHg AV Velocity Time Integral 41.9 cm MV Area PHT 2.9 cm??? Mitral E Point Velocity 70.6 cm/s Mitral A Point Velocity 86.3 cm/s Mitral E to A Ratio 0.8 MV Deceleration Time 260.7 ms TR Peak Velocity 312.0 cm/s TR Peak Gradient 38.9 mmHg FINDINGS Left Ventricle Left ventricular ejection fraction is estimated at 60-65%. Mildly increased posterior wall thickness. Normal left ventricular systolic function with no obvious regional wall motion abnormalities. Left ventricular cavity size normal. Right Ventricle Normal right ventricular size and function. Right Atrium Normal right atrial size. Left Atrium Mild left atrial dilatation. Mitral Valve Structurally normal mitral valve. Trace mitral regurgitation. Aortic Valve Trileaflet aortic valve. Diffuse thickening (sclerosis) of the aortic valve cusps without reduced excursion. No aortic regurgitation. Tricuspid Valve Structurally normal tricuspid valve. Trace to mild tricuspid regurgitation. Pulmonic Valve Structurally normal pulmonic valve. No pulmonic regurgitation. Trace pulmonic regurgitation. Pericardium No pericardial or pleural effusion. Aorta Normal size aortic root and proximal ascending aorta. CONCLUSIONS Left ventricular ejection fraction is estimated at 60-65%. No obvious regional wall motion abnormality Mild concentric LVH Mild LA dilatation RVSP estimated at 38 mmHg which is mildly elevated Previewed by: Dr Chad Brown (Electronically Signed) Final Date: 30 January 2024 12:27
== END | disposition home or self-care (01) ==
LOC: RADECHMAIN 13:06
PROVIDERS: ATTEND Internal Medicine
DX: I63.49 Cerebral infarction due to embolism of other cerebral artery (principal)
CPT/HCPCS: 93306; 93880

== ENCOUNTER → 2024-04-29 | Outpatient (CLI) | payer MEDICARE ==
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
== END | disposition home or self-care (01) ==
LOC: RADCTMAIN 13:25
PROVIDERS: ATTEND Specialist
DX: M19.172 Post-traumatic osteoarthritis, left ankle and foot (principal)

== ENCOUNTER → 2024-06-04 | Outpatient (CLI) | payer MEDICARE ==
[2024-06-04 14:10] VITALS: BP 126/73; PULSE 100; RESP 16
--- NOTE | 2024-06-04 14:39 | P.PAINPG ---
PQRS Measure Charge Sheet Comment: HISTORY OF PRESENT ILLNESS: A 78 yr old female presents today w severe and chronic L Ankle and Foot pain > 3 mo secondary to DJD for evaluation of CT scan L Ankle and medication refills. Pt states pain level is provoked at 8 /10 in intensity, constant, localized in the L ankle, achy in character without shooting pain. Pain is provoked by weight bearing. Pain is alleviated by PT x 6 wks which ended in Jan 2024, physician guided home stretches daily since Jan 2024, ice, medications, topical, repositioning and rest . Interventional procedures include L Ankle Surgery w Hardware Medications include Neurontin, Tyl, BioFreeze REVIEW OF ORGAN SYSTEMS: CONSTITUTIONAL: No fevers or chills. No recent weight loss. NEUROLOGICAL: + numbness and tingling along the distal extremities. No seizure disorders or headaches. MUSCULOSKELETAL: + pain PSYCHIATRIC: Denies current depression or suicidal thoughts. Physical Examinations : Constitutional : Cooperative , not in acute distress . Neurologic : Cranial nerve II to XII intact. No focal neurological deficits. Psychiatric : alert & oriented x 3. Matching mood & appropriate affect. Judgment & insight intact. Musculoskeletal : Cervical Spine Motor strength in the deltoid and biceps: Normal right side. Normal Left side Motor strength biceps and the wrist extensors: Normal right side . Normal left side Motor strength in the triceps muscle: Normal right side. Normal left side Deep tendon reflexes: Normal at the biceps. Normal at Brachioradialis. Normal at triceps Vertebral body tenderness to deep palpation over Cervical facet loading test: positive bilaterally Spurling test: positive bilaterally Neck distraction test: positive bilaterally Tiara sign: positive bilaterally Lumbar spine Motor strength lower extremities ,thigh and legs 5/5 Right side , 5/5 Left side Deep tendon reflexes : Normal Knee Jerk. Normal Ankle Jerk Vertebral body tenderness over Olvera Test positive Lumbar facet Loading Test: positive Right / positive Left Range of motion of the lumbar spine Flexion 30 degrees, extension 10 degrees Straight Leg Raise test: Left/ Right positive at degrees Leonel test: positive right / positive left. Severe tenderness over the Sacroiliac joint on the Right / Left sides Gaenslen test: positive bilaterally Seated flexion test: positive bilaterally. Sacral spine : +L ankle incisional scars intact w 1+ ankle edema Severe tenderness over the Sacroiliac joint: right side / left side Range of motion: Flexion of the lumbar spine <60 degrees Range of motion: Extension of the lumbar spine <20 degrees Gaenslen's Test positive Leonel test: positive right side / left side Thigh Thrust Test Sacral Thrust Test Imaging: X ray of L ankle and L foot from 01/29/[address] non contrast L ankle from 04/29/24 reviewed Assessment/ Plan : L post traumatic tibiotalar DJD Recommendation of medication management. Tramadol 50mg #30 w 1 RF. UDS collected 06/04/24. Opiate/ narcotic agreement signed 04/09/24. Use, side effects adverse reactions, safe storage discussed. All questions answered. I have spent greater than 30 minutes on patient care today. Dr Rdz was available by phone for the evaluation of this patient. The time was used to review the medical records including relevant urine studies and Prescription history (MAPs), review of the available imaging, evaluation and examination of the patient, coordination of care with the medical staff and if applicable referring physicians, as well as creation of the medical record PQRS Narrative: Smoking Status Never smoker Hx Alcohol Use (MH) No Home Medications: Ambulatory Orders Sertraline HCl [Zoloft] 50 mg PO DAILY 02/16/17 Atorvastatin [Lipitor] 20 mg PO DAILY 10/09/19 Clopidogrel [Plavix] 75 mg PO DAILY 10/09/19 Losartan [Cozaar] 50 mg PO DAILY 10/09/19 Sertraline [Zoloft] 100 mg PO DAILY 10/09/19 Bethanechol [Urecholine] 25 mg PO TID #90 tablet 10/12/19 Cefuroxime [Ceftin] 250 mg PO Q12H #14 tab 10/12/19 Imipramine [Tofranil] 25 mg PO HS #30 tab 10/12/19 Melatonin 6 mg PO HS tablet 10/12/19 Gabapentin [Neurontin] 300 mg PO HS #3 cap 10/13/19 traMADol HCL 50 mg PO DAILY PRN 30 Days #30 tab 06/04/24 Controlled Substance Measures - Controlled Substance Measures Is patient prescribed a controlled substance at discharge?: Yes When asked, does pt state using other controlled substances?: No If prescribed controlled substance>3 days was MAPS reviewed?: Yes
== END ==
LOC: PNWHC3 13:48
PROVIDERS: ATTEND Specialist
CPT/HCPCS: 80307; 99212

== ENCOUNTER 2024-07-12 14:45 | Inpatient (IN) | payer MEDICARE ==
--- NOTE | 2024-07-12 15:38 | ED ---
Abdominal Pain HPI - General Chief Complaint: Abdominal Pain Stated Complaint: Back pain Time Seen by Provider: 07/12/24 15:13 Source: patient, family, RN notes reviewed, old records reviewed Mode of arrival: wheelchair Limitations: no limitations - History of Present Illness Initial Comments: This is a 78-year-old female to the ER today. She is presents today for evaluation regards to multiple complaints with recent coronavirus diagnosis. Patient's main, main complaint is left-sided abdominal pain left lower quad abdominal pain left flank pain that all started today progressively worsening with no nausea or vomiting although she did feel like she had fevers and chills. No recent travel history no sick contacts no recent surgery. Prior history of colonoscopy which is normal MD Complaint: abdominal pain, flank pain, other (Left-sided left lower quadrant) -: hour(s) Location: LLQ, L flank Migration to: suprapubic Severity: moderate Severity scale (1-10): 7 Quality: fullness, sharp Consistency: intermittent Improves With: nothing Worsens With: nothing Context: other (Recent coronavirus diagnosis) Associated Symptoms: nausea, fever Treatments Prior to Arrival: other - Related Data Home Medications Medication Instructions Recorded Confirmed Sertraline HCl [Zoloft] 50 mg PO DAILY 02/16/17 10/09/19 Atorvastatin [Lipitor] 20 mg PO DAILY 10/09/19 10/09/19 Clopidogrel [Plavix] 75 mg PO DAILY 10/09/19 10/09/19 Losartan [Cozaar] 50 mg PO DAILY 10/09/19 10/09/19 Sertraline [Zoloft] 100 mg PO DAILY 10/09/19 10/09/19 Previous Rx's Medication Instructions Recorded Bethanechol [Urecholine] 25 mg PO TID #90 tablet 10/12/19 Cefuroxime [Ceftin] 250 mg PO Q12H #14 tab 10/12/19 Imipramine [Tofranil] 25 mg PO HS #30 tab 10/12/19 Melatonin 6 mg PO HS tablet 10/12/19 Gabapentin [Neurontin] 300 mg PO HS #3 cap 10/13/19 traMADol HCL 50 mg PO DAILY PRN 30 Days #30 tab 06/04/24 Allergies Allergy/AdvReac Type Severity Reaction Status Date / Time bee venom protein (honey bee) Allergy Anaphylaxis Verified 07/12/24 14:49 Sulfa (Sulfonamide Allergy Rash/Hives Verified 07/12/24 14:49 Antibiotics) Review of Systems ROS Statement: Those systems with pertinent positive or pertinent negative responses have been documented in the HPI. ROS Other: All systems not noted in ROS Statement are negative. Past Medical History Past Medical History: CVA/TIA, Hypertension Additional Past Medical History / Comment(s): Chronic UTI's History of Any Multi-Drug Resistant Organisms: None Reported Past Surgical History: Orthopedic Surgery, Tonsillectomy Additional Past Surgical History / Comment(s): Left lower fracture with plates and screws, bilateral cataract removal and intraocular lens implants, left knee arthroscopically, breast biopsy benign Past Psychological History: Depression Smoking Status: Former smoker Past Alcohol Use History: None Reported Past Drug Use History: None Reported - Past Family History Father Additional Family Medical History / Comment(s): Father in his 80s from heart failure. Mother Additional Family Medical History / Comment(s): Mother in her 80s from heart failure. Brother(s) Additional Family Medical History / Comment(s): Patient has 1 brother that at age 62 from a myocardial infarction. Patient does not have any sisters. Daughter(s) Additional Family Medical History / Comment(s): Patient has 2 daughters one is mentally impaired with cerebral palsy. Second daughter has no major medical problems. General Exam Limitations: no limitations General appearance: alert, anxious, in distress Head exam: Present: atraumatic, normocephalic, normal inspection Eye exam: Present: normal appearance, PERRL, EOMI. Absent: scleral icterus, conjunctival injection, periorbital swelling ENT exam: Present: normal exam, mucous membranes moist Neck exam: Present: normal inspection. Absent: tenderness, meningismus, lymphadenopathy Respiratory exam: Present: normal lung sounds bilaterally. Absent: respiratory distress, wheezes, rales, rhonchi, stridor Cardiovascular Exam: Present: normal rhythm, tachycardia, normal heart sounds. Absent: systolic murmur, diastolic murmur, rubs, gallop, clicks GI/Abdominal exam: Present: soft, normal bowel sounds. Absent: distended, tenderness, guarding, rebound, rigid Extremities exam: Present: normal inspection, full ROM, normal capillary refill. Absent: tenderness, pedal edema, joint swelling, calf tenderness Back exam: Present: normal inspection Neurological exam: Present: alert, oriented X3, CN II-XII intact Psychiatric exam: Present: normal affect, normal mood Skin exam: Present: warm, dry, intact, normal color. Absent: rash Course Vital Signs 07/12/24 14:49 Temperature 98.8 F Pulse Rate 111 H Respiratory 20 Rate Blood Pressure 142/99 O2 Sat by Pulse 94 L Oximetry - Reevaluation(s) Reevaluation #1: 07/12/24 15:47 Medical records reviewed Reevaluation #2: 07/12/24 18:05 Patient is in no acute distress here in the ER Patient will be admitted for VQ scan given Lovenox dose secondary to kidney disease and D-dimer of 24 Reevaluation #3: 07/12/24 18:06 Patient informed of results and questions answered Reevaluation #4: Was pt. sent in by a medical professional or institution (, [facility], TRAVELING BUYER, urgent care, hospital, or retirement...) When possible be specific @ -no Did you speak to anyone other than the patient for history (EMS, parent, family, police, friend...)? What history was obtained from this source @ -no Did you review nursing and triage notes (agree or disagree)? Why? @ -agree Are old charts reviewed (outside hosp., previous admission, EMS record, old EKG, old radiological studies, urgent care reports/EKG's, retirement records)? Report findings @ -yes Differential Diagnosis (chest pain, altered mental status, abdominal pain women, abdominal pain men, vaginal bleeding, weakness, fever, dyspnea, syncope, headache, dizziness, GI bleed, back pain, seizure, CVA, palpatations, mental health, musculoskeletal)? @ -prior EKG interpreted by me (3pts min.). @ -yes X-rays interpreted by me (1pt min.). @ -yes negative for acute disease CT interpreted by me (1pt min.). @ -no U/S interpreted by me (1pt. min.). @ -no What testing was considered but not performed or refused? (CT, X-rays, U/S, labs)? Why? @ -none What meds were considered but not given or refused? Why? @ -none Did you discuss the management of the patient with other professionals (pr ofessionals i.e. , PA, TRAVELING BUYER, lab, RT, psych nurse, adoption social worker, rotary shear worker helper, teacher, search and rescue officer, case reviewer)? Give summary @ -no Was smoking cessation discussed for >3mins.? @ -no Was critical care preformed (if so, how long)? @ -no Were there social determinants of health that impacted care today? How? (Homelessness, low income, unemployed, alcoholism, drug addiction, transportation, low edu. Level, literacy, decrease access to med. care, usp, rehab)? @ -none Was there de-escalation of care discussed even if they declined (Discuss DNR or withdrawal of care, Hospice)? DNR status @ -no What co-morbidities impacted this encounter? (DM, HTN, Smoking, COPD, CAD, Cancer, CVA, ARF, Chemo, Hep., AIDS, mental health diagnosis, sleep apnea, morbid obesity)? @ -none Was patient admitted / discharged? Hospital course, mention meds given and route, prescriptions, significant lab abnormalities, going to OR and other pertinent info. @ - Undiagnosed new problem with uncertain prognosis? @ -no Drug Therapy requiring intensive monitoring for toxicity (Heparin, Nitro, Insulin, Cardizem)? @ -no Were any procedures done? @ -no Diagnosis/symptom? @ - Acute, or Chronic, or Acute on Chronic? @ -Acute Uncomplicated (without systemic symptoms) or Complicated (systemic symptoms)? @ -Complicated Side effects of treatment? @ -no Exacerbation, Progression, or Severe Exacerbation? @ -exacerbation Poses a threat to life or bodily function? How? (Chest pain, USA, NH, pneumonia, PE, COPD, DKA, ARF, appy, cholecystitis, CVA, Diverticulitis, Homicidal, Suicidal, threat to staff... and all critical care pts) @ -yes Reevaluation #5: Differential Abdominal Pain Women: Appendicitis, Cholecystitis, diverticulosis, ischemic bowel, pancreatitis, hepatitis, UTI, gastroenteritis, AAA, incarcerated hernia, bowel obstruction, constipation, inflammatory bowel, hepatitis, peptic ulcer disease, splenic infarction, perforated viscus, vulvitis, ovarian torsion, PID, kidney stone, placenta abruption, this is not meant to be an all-inclusive list - Consultations Consultation #1: Spoke with Dr. Estevez who agrees to admit this patient Medical Decision Making - Medical Decision Making 78 female to the ER for evaluation and abdominal pain severe left-sided abdominal pain left flank pain with fever symptoms. Patient has significantly elevated white blood cell count lactic acid acute kidney injury, suspect secondary pyelonephritis from kidney stone which does appear to be passed into the bladder, patient will be admitted for IV antibiotics and monitoring of lab testing - Lab Data Result diagrams: 07/12/24 16:43 07/12/24 16:43 Lab Results 07/12/24 07/12/24 07/12/24 Range/Units 16:43 16:43 16:43 WBC 29.4 H (3.8-10.6) k/uL RBC 5.12 (3.80-5.40) m/uL Hgb 11.8 (11.4-16.0) gm/dL Hct 38.9 (34.0-46.0) % MCV 75.9 L (80.0-100.0) fL MCH 23.0 L (25.0-35.0) pg MCHC 30.3 L (31.0-37.0) g/dL RDW 16.7 H (11.5-15.5) % Plt Count 275 (150-450) k/uL MPV 9.5 Neutrophils % (Manual) 88 % Band Neuts % (Manual) 9 % Lymphocytes % (Manual) 1 % Monocytes % (Manual) 2 % Basophils % (Manual) 1 % Neutrophils # (Manual) 28.50 H (1.3-7.7) k/uL Lymphocytes # (Manual) 0.29 L (1.0-4.8) k/uL Monocytes # (Manual) 0.59 (0-1.0) k/uL Basophils # (Manual) 0.29 H (0-0.2) k/uL Nucleated RBCs 0 (0-0) /100 WBC Manual Slide Review Perf Hypochromasia Marked Anisocytosis Slight Microcytosis Slight PT 11.4 (10.0-12.5) sec INR 1.1 (<1.2) APTT 23.2 (22.0-30.0) sec D-Dimer 24.75 H (<0.60) mg/L FEU Sodium 139 (137-145) mmol/L Potassium 4.2 (3.5-5.1) mmol/L Chloride 108 H (98-107) mmol/L Carbon Dioxide 18 L (22-30) mmol/L Anion Gap 13 mmol/L BUN 47 H (7-17) mg/dL Creatinine 1.88 H (0.52-1.04) mg/dL Est GFR (CKD-EPI)AfAm 29 (>60 ml/min/1.73 sqM) Est GFR (CKD-EPI)NonAf 25 (>60 ml/min/1.73 sqM) Glucose 107 H (74-99) mg/dL Plasma Lactic Acid Maxime (0.7-2.0) mmol/L Calcium 9.1 (8.4-10.2) mg/dL Phosphorus 2.9 (2.5-4.5) mg/dL Magnesium 1.5 L (1.6-2.3) mg/dL Total Bilirubin 0.5 (0.2-1.3) mg/dL AST 28 (14-36) U/L ALT 18 (4-34) U/L Alkaline Phosphatase 115 (38-126) U/L Troponin I (0.000-0.034) ng/mL NT-Pro-B Natriuret Pep 504 pg/mL Total Protein 7.4 (6.3-8.2) g/dL Albumin 4.0 (3.5-5.0) g/dL Amylase 55 (30-110) U/L Lipase 87 (23-300) U/L 07/12/24 07/12/24 Range/Units 16:43 16:43 WBC (3.8-10.6) k/uL RBC (3.80-5.40) m/uL Hgb (11.4-16.0) gm/dL Hct (34.0-46.0) % MCV (80.0-100.0) fL MCH (25.0-35.0) pg MCHC (31.0-37.0) g/dL RDW (11.5-15.5) % Plt Count (150-450) k/uL MPV Neutrophils % (Manual) % Band Neuts % (Manual) % Lymphocytes % (Manual) % Monocytes % (Manual) % Basophils % (Manual) % Neutrophils # (Manual) (1.3-7.7) k/uL Lymphocytes # (Manual) (1.0-4.8) k/uL Monocytes # (Manual) (0-1.0) k/uL Basophils # (Manual) (0-0.2) k/uL Nucleated RBCs (0-0) /100 WBC Manual Slide Review Hypochromasia Anisocytosis Microcytosis PT (10.0-12.5) sec INR (<1.2) APTT (22.0-30.0) sec D-Dimer (<0.60) mg/L FEU Sodium (137-145) mmol/L Potassium (3.5-5.1) mmol/L Chloride (98-107) mmol/L Carbon Dioxide (22-30) mmol/L Anion Gap mmol/L BUN (7-17) mg/dL Creatinine (0.52-1.04) mg/dL Est GFR (CKD-EPI)AfAm (>60 ml/min/1.73 sqM) Est GFR (CKD-EPI)NonAf (>60 ml/min/1.73 sqM) Glucose (74-99) mg/dL Plasma Lactic Acid Maxime 4.4 H* (0.7-2.0) mmol/L Calcium (8.4-10.2) mg/dL Phosphorus (2.5-4.5) mg/dL Magnesium (1.6-2.3) mg/dL Total Bilirubin (0.2-1.3) mg/dL AST (14-36) U/L ALT (4-34) U/L Alkaline Phosphatase (38-126) U/L Troponin I <0.012 (0.000-0.034) ng/mL NT-Pro-B Natriuret Pep pg/mL Total Protein (6.3-8.2) g/dL Albumin (3.5-5.0) g/dL Amylase (30-110) U/L Lipase (23-300) U/L - Radiology Data Radiology results: report reviewed (CT abdomen pelvis chest x-ray is negative for acute disease), image reviewed Disposition Clinical Impression: JAMI (acute kidney injury), UTI (urinary tract infection), Abdominal pain, Pyelonephritis, Leukocytosis, CKD (chronic kidney disease) Disposition: ADMITTED IP TO THIS [facility] Condition: Serious Is patient prescribed a controlled substance at d/c from ED?: No Referrals: Phani Estevez MD [Primary Care Provider] - 1-2 days Time of Disposition: 18:00
[2024-07-12] MEDS: SODIUM CHLORIDE 0.9% 1,000 ML IV STA ×3 (16:46→19:01)
[2024-07-12] MEDS: ACETAMINOPHEN TAB 500 MG TAB PO STA (16:48)
[2024-07-12 16:53] LABS: Anisocytosis Slight; HCT 38.9 % (34.0-46.0); HGB 11.8 gm/dL (11.4-16.0); Hypochromasia Marked; MCHC 30.3 g/dL (31.0-37.0); MCV 75.9 fL (80.0-100.0); Mean Platelet Volume 9.5; Microcytosis Slight; Platelet Count 275 k/uL (150-450); RBC 5.12 m/uL (3.80-5.40); RDW 16.7 % (11.5-15.5); WBC 29.4 k/uL (3.8-10.6)
[2024-07-12] MEDS: ONDANSETRON 4 MG/2 ML VIAL IVP STA (16:53)
[2024-07-12] MEDS: IBUPROFEN 800 MG TAB PO STA (16:53)
[2024-07-12 17:05] LABS: ALT 18 U/L (4-34); AST 28 U/L (14-36); African American GFR (CKD) 29 (>60 ml/min/1.73 sqM); Alkaline Phosphatase 115 U/L (38-126); Amylase 55 U/L (30-110); Anion Gap 13 mmol/L; Blood Urea Nitrogen 47 mg/dL (7-17); Calcium 9.1 mg/dL (8.4-10.2); Carbon Dioxide 18 mmol/L (22-30); Chloride 108 mmol/L (98-107); Glucose 107 mg/dL (74-99); Lipase 87 U/L (23-300); Magnesium 1.5 mg/dL (1.6-2.3); Non-African American GFR(CKD) 25 (>60 ml/min/1.73 sqM); Phosphorus 2.9 mg/dL (2.5-4.5); Potassium 4.2 mmol/L (3.5-5.1); Sodium 139 mmol/L (137-145); Total Bilirubin 0.5 mg/dL (0.2-1.3); Total Protein 7.4 g/dL (6.3-8.2)
[2024-07-12 17:12] LABS: NT-Pro-B-Type Natriuretic Pept 504 pg/mL
--- NOTE | 2024-07-12 17:18 | CT ---
EXAMINATION TYPE: CT abdomen pelvis wo con DATE OF EXAM: 07/12/2024 5:07 PM COMPARISON: None available. CLINICAL INDICATION: Female, 78 years old with history of abdominal pain; LLQ abdominal pain x1day. TECHNIQUE: Axial CT abdomen pelvis wo con;Sagittal and coronal reformats were created on a separate workstation. Oral contrast used: without Oral Contrast (none if empty) CT DLP: 1147.4 mGycm, Automated exposure control for dose reduction was used. FINDINGS: LOWER CHEST: Unremarkable ABDOMEN LIVER: Unremarkable GALLBLADDER AND BILE DUCTS: Possible cholelithiasis without CT evidence of acute cholecystitis. PANCREAS: Unremarkable. SPLEEN: Unremarkable. ADRENAL GLANDS: Indeterminate 2.1 x 2.5 cm left adrenal gland nodule. No right-sided tumor nodule ester ntified. KIDNEYS AND URETERS: Asymmetric left-sided perinephric fat stranding/inflammation. There is mild left -sided hydroureteronephrosis without discrete evidence of an obstructing renal or ureteral calculus. There is a 4 mm calculus in the right posterior urinary bladder lumen. No evidence of right-sided nep hrolithiasis or urolithiasis. PELVIS BLADDER: No evidence for wall thickening or mass given limitations of exam. REPRODUCTIVE: Unremarkable. ABDOMEN & PELVIS STOMACH AND BOWEL: . Scattered diverticula are noted throughout the colon. No evidence of bowel obstr uction. Moderate-sized hilar hernia. PERITONEUM/RETROPERITONEUM: No evidence of pneumoperitoneum or free fluid. VASCULATURE: No evidence of aortic aneurysm. MUSCULOSKELETAL: No acute osseous abnormalities LYMPH NODES: No gross evidence for lymphadenopathy. SOFT TISSUE/ABDOMINAL WALL: Unremarkable IMPRESSION: 1. Mild left-sided hydroureteronephrosis and left perinephric fat stranding/inflammation without dis crete evidence of obstructing renal or ureteral calculus. However, there is a 4 mm calculus in the ri ght posterior urinary bladder lumen. Overall, findings are felt to most likely reflect sequelae of re cently passed stone. Consider outpatient CT urogram study if symptoms persist to exclude other etiolo gies. 2. Indeterminate left-sided adrenal gland nodule measuring 2.5 cm. Consider correlation with any lily or outside imaging if available or further outpatient evaluation with CT or MRI utilizing adrenal pro tocol if clinically warranted. 3. Moderate sized hiatal hernia. [facility], , 07/12/2024 5:16 PM
--- NOTE | 2024-07-12 17:19 | XR ---
EXAMINATION TYPE: XR chest 1V DATE OF EXAM: 07/12/2024 5:09 PM COMPARISON: Previous chest radiograph 10/09/2019. CLINICAL INDICATION: Female, 78 years old with history of cough; H TECHNIQUE: XR chest 1V Frontal view of the chest. FINDINGS: Lungs/Pleura: There is no evidence of pleural effusion, focal consolidation, or pneumothorax. Pulmonary vascularity: Unremarkable. Heart/mediastinum: Cardiomediastinal silhouette is unremarkable. Musculoskeletal: No acute osseous pathology. Other findings: None IMPRESSION: No acute cardiopulmonary disease/process. [facility], , 07/12/2024 5:16 PM
[2024-07-12 17:26] LABS: INR 1.1 (<1.2); Partial Thromboplastin Time 23.2 sec (22.0-30.0); Prothrombin Time 11.4 sec (10.0-12.5)
[2024-07-12 17:48] LABS: Band Neutrophils % 9 %; Basophils # (M) 0.29 k/uL (0-0.2); Lymphocytes # (M) 0.29 k/uL (1.0-4.8); Monocytes # (M) 0.59 k/uL (0-1.0); Neutrophils % (M) 88 %; Nucleated Red Blood Cells 0 /100 WBC (0-0); Total Cells Counted 200
[2024-07-12] MEDS ORDERED: ONDANSETRON 4 MG/2 ML VIAL IVP PRN (18:02)
[2024-07-12] MEDS ORDERED: NALOXONE 0.4 MG/ML 1 ML VIAL IV PRN (18:02)
[2024-07-12] MEDS: MAGNESIUM OXIDE 400 MG TAB PO STA ×2 (18:55)
[2024-07-12] MEDS: ENOXAPARIN 150 MG/ML SYRINGE SQ STA (18:57)
[2024-07-12] MEDS: MAGNESIUM SULFATE-D5W PMX 1 GM in DEXTROSE/WATER 1 100ML.BAG IVPB ONE (20:39)
[2024-07-12] MEDS: SODIUM CHLORIDE 0.9% 1,000 ML IV SCH (20:41)
[2024-07-13] MEDS: ACETAMINOPHEN TAB 325 MG TAB PO PRN (02:38)
[2024-07-13] MEDS: MORPHINE SULFATE 4 MG/ML SYRINGE IV PRN (02:43)
[2024-07-13 03:11] LABS: Appearance,Urine Clear (Clear); Bacteria,Urine Rare /hpf; Bilirubin,Urine Negative (Negative); Blood,Urine Large (Negative); Budding Yeast,Urine Rare /hpf; Color,Urine Light Yellow; Glucose,Urine (UA) Negative (Negative); Hyaline Casts,Urine 1 /lpf (0-2); Ketones,Urine Negative (Negative); Leukocyte Esterase,Urine Large (Negative); Nitrite,Urine Positive (Negative); Protein,Urine 1+ (Negative); RBC,Urine 62 /hpf (0-5); Squamous Epithelial Cell,Urine 2 /hpf (0-4); Urobilinogen,Urine <2.0 mg/dL (<2.0); WBC,Urine 17 /hpf (0-5)
--- NOTE | 2024-07-13 08:17 | NM ---
EXAMINATION TYPE: NM pul vent and perfuse DATE OF EXAM: 07/13/2024 CLINICAL INDICATION: Female, 78 years old with history of PE; COMPARISON: NONE TECHNIQUE: Utilizing inhalation of 68.0 mCi Tc 99m DTPA aerosol and intravenous injection of 5.23 mC i of Tc 99m MAA, ventilation and perfusion images are acquired post injection in multiple projections . FINDINGS: Normal radiotracer distribution is noted in the lungs. There is no evidence of mismatched defects. IMPRESSION: Low probability for pulmonary embolism [facility], Workstation: [id number] 07/13/2024 8:15 AM
[2024-07-13 10:32] LABS: Basophils % (A) 0.3 %; Eosinophils # (A) 0.05 X 10*3/uL (0.04-0.35); Eosinophils % (A) 0.1 %; HCT 31.6 % (37.2-46.3); HGB 9.2 g/dL (12.0-15.0); Lymphocytes # (A) 1.29 X 10*3/uL (0.90-5.00); Lymphocytes % (A) 3.8 %; MCH 22.2 pg (27.0-32.0); MCHC 29.1 g/dL (32.0-37.0); MCV 76.1 FL (80.0-97.0); Microcytosis (M) 2+; Monocytes # (A) 1.44 X 10*3/uL (0.20-1.00); Monocytes % (A) 4.2 %; NRBC Per 100 WBC 0 X 10*3/uL (0.00-0.01); Neutrophils # (A) 30.87 X 10*3/uL (1.80-7.70); Neutrophils % (A) 90.4 %; Platelet Count 189 X 10*3/uL (140-440); RBC 4.15 X 10*6/uL (4.10-5.20); RDW 17.5 % (11.5-14.5); WBC 34.15 X 10*3/uL (4.50-10.00)
[2024-07-13 10:55] LABS: ALT 11 U/L (8-44); AST 21 U/L (13-35); Albumin 3.1 g/dL (3.8-4.9); Albumin/Globulin Ratio 1.41 Ratio (1.60-3.17); Alkaline Phosphatase 78 U/L (41-126); BUN/Creat Ratio 25.87 Ratio (12.00-20.00); Blood Urea Nitrogen 38.8 mg/dL (9.0-27.0); Calcium 8.1 mg/dL (8.7-10.3); Carbon Dioxide 21.3 mmol/L (21.6-31.8); Chloride 110 mmol/L (96-109); Globulin 2.2 g/dL (1.6-3.3); Glucose 93 mg/dL (70-110); Potassium 4.7 mmol/L (3.5-5.5); Sodium 141 mmol/L (135-145); Total Bilirubin <0.2 mg/dL (0.3-1.2); Total Protein 5.3 g/dL (6.2-8.2)
--- NOTE | 2024-07-13 11:56 | P.NPCON ---
History of Present Illness - Reason for Consult Consult date: 07/13/24 - Chief Complaint Abdominal Pain - History of Present Illness Patient is a 78 yo female presenting to ED for abdominal pain. She was also recently diagnosed with COVID outpatient. Patient's main, main complaint is left-sided abdominal pain left lower quad abdominal pain left flank pain that all started yesterday progressively worsening with no nausea or vomiting although she did feel like she had fevers and chills. Imaging in ED revealed left hydronephrosis and possible passed stone in bladder. Today her pain is much improved and urinating often without issues. Does admit to history of CKD but unsure what her baseline level is. Follows with her primary for CKD. Vital signs are stable. General: No acute distress. HEENT: Head exam is unremarkable. LUNGS: No audible rhonchi or wheezes. HEART: Rate and Rhythm are regular. ABDOMEN: Nontender. EXTREMITITES: no edema. Review of Systems Constitutional: Reports as per HPI Past Medical History Past Medical History: CVA/TIA, Hypertension Additional Past Medical History / Comment(s): Chronic UTI's History of Any Multi-Drug Resistant Organisms: None Reported Past Surgical History: Orthopedic Surgery, Tonsillectomy Additional Past Surgical History / Comment(s): Left lower fracture with plates and screws, bilateral cataract removal and intraocular lens implants, left knee arthroscopically, breast biopsy benign Past Psychological History: Depression Smoking Status: Former smoker Past Alcohol Use History: None Reported Past Drug Use History: None Reported - Past Family History Father Additional Family Medical History / Comment(s): Father in his 80s from heart failure. Mother Additional Family Medical History / Comment(s): Mother in her 80s from heart failure. Brother(s) Additional Family Medical History / Comment(s): Patient has 1 brother that at age 62 from a myocardial infarction. Patient does not have any sisters. Daughter(s) Additional Family Medical History / Comment(s): Patient has 2 daughters one is mentally impaired with cerebral palsy. Second daughter has no major medical problems. Medications and Allergies Home Medications Medication Instructions Recorded Confirmed Type Atorvastatin [Lipitor] 20 mg PO HS 10/09/19 07/12/24 History Clopidogrel [Plavix] 75 mg PO DAILY 10/09/19 07/12/24 History Sertraline [Zoloft] 200 mg PO HS 10/09/19 07/12/24 History ARIPiprazole [Abilify] 2 mg PO HS 07/12/24 07/12/24 History Atomoxetine HCl [Strattera] 80 mg PO DAILY 07/12/24 07/12/24 History Cholecalciferol [Vitamin D3 (25 25 mcg PO DAILY 07/12/24 07/12/24 History Mcg = 1000 Iu)] Docusate [Colace] 100 mg PO HS 07/12/24 07/12/24 History Donepezil [Aricept] 10 mg PO HS 07/12/24 07/12/24 History Folic Acid 1 mg PO DAILY 07/12/24 07/12/24 History Gabapentin [Neurontin] 100 mg PO BID 07/12/24 07/12/24 History Losartan Potassium [Cozaar] 100 mg PO DAILY 07/12/24 07/12/24 History Melatonin 10 mg PO HS 07/12/24 07/12/24 History Metoprolol Succinate (ER) [Toprol 50 mg PO HS 07/12/24 07/12/24 History Xl] Trospium Chloride [Sanctura XR] 60 mg PO DAILY 07/12/24 07/12/24 History modafiniL [Provigil] 100 mg PO DAILY 07/12/24 07/12/24 History traMADol HCL 50 mg PO DAILY 07/12/24 07/12/24 History Allergies Allergy/AdvReac Type Severity Reaction Status Date / Time bee venom protein (honey bee) Allergy Anaphylaxis Verified 07/12/24 18:34 Sulfa (Sulfonamide Allergy Rash/Hives Verified 07/12/24 18:34 Antibiotics) Physical Exam Vitals: Vital Signs Temp Pulse Resp BP Pulse Ox 07/13/24 09:36 92 16 127/68 98 07/13/24 08:21 99 16 144/79 98 07/13/24 06:45 98 18 111/54 99 07/13/24 04:13 96 16 104/56 99 07/13/24 02:48 93 18 106/74 97 07/13/24 00:16 84 18 104/5 96 07/12/24 19:01 77 20 143/74 96 07/12/24 14:49 98.8 F 111 H 20 142/99 94 L Results - Lab Results Most recent lab results Calcium 9.1 mg/dL (8.4-10.2) 07/12/24 16:43 Phosphorus 2.9 mg/dL (2.5-4.5) 07/12/24 16:43 Magnesium 1.5 mg/dL (1.6-2.3) L 07/12/24 16:43 07/13/24 05:08 07/13/24 05:08 Assessment and Plan Assessment: 1. 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 Baseline creatinine 1.0 (2019), presented creatinine 1.8. UA concerning for infection. CT showed left hydronephrosis with possible left perinephric inflammation with 4mm bladder stone. 2. Acute left pyelonephritis 3. Hypomagnesemia 4. Acute nephrolithiasis with mild left hydronephrosis Plan: Continue with IVF for now Stone looks as it has passed into bladder Urology has been consulted Continue ABX for infection, await culture Repeat labs pending today
--- NOTE | 2024-07-13 12:51 | P.GSCN ---
History of Present Illness Consult date: 07/13/24 Reason for Consult: Left hydronephrosis Requesting physician: Phani Estevez History of present illness: The patient is a 78-year-old white female who believes she passed a kidney stone in the remote past. She states that she has been treated for infrequent UTIs, but is usually asymptomatic at those times. She presented to the ER yesterday for evaluation of left flank and abdominal pain. Onset of symptoms was yesterd ay morning. CT scan showed evidence of left hydroureteronephrosis. A ureteral calculus was not seen, but a 4 mm calculus was seen within the bladder. The CT scan also showed a 21 x 25 mm incidental left adrenal nodule. She states that she is now feeling better, and that her pain has resolved. Incidentally, she was diagnosed with COVID on July 04, 2024. Review of Systems - Constitutional Reports chills, Denies fever - Gastrointestinal Denies nausea, Denies vomiting - Genitourinary Genitourinary: Reports flank pain, Reports kidney stones, Denies dysuria, Denies hematuria Past Medical History Past Medical History: CVA/TIA, Hypertension Additional Past Medical History / Comment(s): Chronic UTI's History of Any Multi-Drug Resistant Organisms: None Reported Past Surgical History: Orthopedic Surgery, Tonsillectomy Additional Past Surgical History / Comment(s): Left lower fracture with plates and screws, bilateral cataract removal and intraocular lens implants, left knee arthroscopically, breast biopsy benign Past Psychological History: Depression Smoking Status: Former smoker Past Alcohol Use History: None Reported Past Drug Use History: None Reported - Past Family History Father Additional Family Medical History / Comment(s): Father in his 80s from heart failure. Mother Additional Family Medical History / Comment(s): Mother in her 80s from heart failure. Brother(s) Additional Family Medical History / Comment(s): Patient has 1 brother that at age 62 from a myocardial infarction. Patient does not have any sisters. Daughter(s) Additional Family Medical History / Comment(s): Patient has 2 daughters one is mentally impaired with cerebral palsy. Second daughter has no major medical problems. Medications and Allergies Home Medications Medication Instructions Recorded Confirmed Type Atorvastatin [Lipitor] 20 mg PO HS 10/09/19 07/12/24 History Clopidogrel [Plavix] 75 mg PO DAILY 10/09/19 07/12/24 History Sertraline [Zoloft] 200 mg PO HS 10/09/19 07/12/24 History ARIPiprazole [Abilify] 2 mg PO HS 07/12/24 07/12/24 History Atomoxetine HCl [Strattera] 80 mg PO DAILY 07/12/24 07/12/24 History Cholecalciferol [Vitamin D3 (25 25 mcg PO DAILY 07/12/24 07/12/24 History Mcg = 1000 Iu)] Docusate [Colace] 100 mg PO HS 07/12/24 07/12/24 History Donepezil [Aricept] 10 mg PO HS 07/12/24 07/12/24 History Folic Acid 1 mg PO DAILY 07/12/24 07/12/24 History Gabapentin [Neurontin] 100 mg PO BID 07/12/24 07/12/24 History Losartan Potassium [Cozaar] 100 mg PO DAILY 07/12/24 07/12/24 History Melatonin 10 mg PO HS 07/12/24 07/12/24 History Metoprolol Succinate (ER) [Toprol 50 mg PO HS 07/12/24 07/12/24 History Xl] Trospium Chloride [Sanctura XR] 60 mg PO DAILY 07/12/24 07/12/24 History modafiniL [Provigil] 100 mg PO DAILY 07/12/24 07/12/24 History traMADol HCL 50 mg PO DAILY 07/12/24 07/12/24 History Allergies Allergy/AdvReac Type Severity Reaction Status Date / Time bee venom protein (honey bee) Allergy Anaphylaxis Verified 07/12/24 18:34 Sulfa (Sulfonamide Allergy Rash/Hives Verified 07/12/24 18:34 Antibiotics) Surgical - Exam Vital Signs Temp Pulse Resp BP Pulse Ox 98.8 F 111 H 20 142/99 94 L 07/12/24 14:49 07/12/24 14:49 07/12/24 14:49 07/12/24 14:49 07/12/24 14:49 - General well developed, well nourished, no distress - Respiratory normal respiratory effort - Abdomen Abdomen: soft, non tender, no guarding, no rigid, no rebound - Psychiatric oriented to time, oriented to person, oriented to place, speech is normal, memor y intact Results - Labs 07/13/24 05:08 07/13/24 05:08 Abnormal Lab Results - Last 24 Hours (Table) 07/12/24 07/12/24 07/12/24 Range/Units 16:43 16:43 16:43 WBC 29.4 H (3.8-10.6) k/uL Hgb (12.0-15.0) g/dL Hct (37.2-46.3) % MCV 75.9 L (80.0-100.0) fL MCH 23.0 L (25.0-35.0) pg MCHC 30.3 L (31.0-37.0) g/dL RDW 16.7 H (11.5-15.5) % Immature Gran # (0.00-0.04) X 10*3/uL Neutrophils # (1.80-7.70) X 10*3/uL Neutrophils # (Manual) 28.50 H (1.3-7.7) k/uL Lymphocytes # (Manual) 0.29 L (1.0-4.8) k/uL Monocytes # (0.20-1.00) X 10*3/uL Basophils # (Manual) 0.29 H (0-0.2) k/uL Microcytosis (manual) D-Dimer 24.75 H (<0.60) mg/L FEU Chloride 108 H (98-107) mmol/L Carbon Dioxide 18 L (22-30) mmol/L BUN 47 H (7-17) mg/dL Creatinine 1.88 H (0.52-1.04) mg/dL Est GFR (CKD-EPI) (>=60) BUN/Creatinine Ratio (12.00-20.00) Ratio Glucose 107 H (74-99) mg/dL Plasma Lactic Acid Maxime (0.7-2.0) mmol/L Calcium (8.7-10.3) mg/dL Magnesium 1.5 L (1.6-2.3) mg/dL Total Bilirubin (0.3-1.2) mg/dL Total Protein (6.2-8.2) g/dL Albumin (3.8-4.9) g/dL Albumin/Globulin Ratio (1.60-3.17) Ratio Urine Protein (Negative) Urine Blood (Negative) Urine Nitrite (Negative) Ur Leukocyte Esterase (Negative) Urine RBC (0-5) /hpf Urine WBC (0-5) /hpf Urine Bacteria (None) /hpf Urine Yeast (Budding) (None) /hpf 07/12/24 07/12/24 07/12/24 Range/Units 16:43 19:13 23:20 WBC (3.8-10.6) k/uL Hgb (12.0-15.0) g/dL Hct (37.2-46.3) % MCV (80.0-100.0) fL MCH (25.0-35.0) pg MCHC (31.0-37.0) g/dL RDW (11.5-15.5) % Immature Gran # (0.00-0.04) X 10*3/uL Neutrophils # (1.80-7.70) X 10*3/uL Neutrophils # (Manual) (1.3-7.7) k/uL Lymphocytes # (Manual) (1.0-4.8) k/uL Monocytes # (0.20-1.00) X 10*3/uL Basophils # (Manual) (0-0.2) k/uL Microcytosis (manual) D-Dimer (<0.60) mg/L FEU Chloride (98-107) mmol/L Carbon Dioxide (22-30) mmol/L BUN (7-17) mg/dL Creatinine (0.52-1.04) mg/dL Est GFR (CKD-EPI) (>=60) BUN/Creatinine Ratio (12.00-20.00) Ratio Glucose (74-99) mg/dL Plasma Lactic Acid Maxime 4.4 H* 3.9 H* 3.3 H* (0.7-2.0) mmol/L Calcium (8.7-10.3) mg/dL Magnesium (1.6-2.3) mg/dL Total Bilirubin (0.3-1.2) mg/dL Total Protein (6.2-8.2) g/dL Albumin (3.8-4.9) g/dL Albumin/Globulin Ratio (1.60-3.17) Ratio Urine Protein (Negative) Urine Blood (Negative) Urine Nitrite (Negative) Ur Leukocyte Esterase (Negative) Urine RBC (0-5) /hpf Urine WBC (0-5) /hpf Urine Bacteria (None) /hpf Urine Yeast (Budding) (None) /hpf 07/13/24 07/13/24 07/13/24 Range/Units 02:47 05:08 05:08 WBC 34.15 H (3.8-10.6) k/uL Hgb 9.2 L (12.0-15.0) g/dL Hct 31.6 L (37.2-46.3) % MCV 76.1 L (80.0-100.0) fL MCH 22.2 L (25.0-35.0) pg MCHC 29.1 L (31.0-37.0) g/dL RDW 17.5 H (11.5-15.5) % Immature Gran # 0.40 H (0.00-0.04) X 10*3/uL Neutrophils # 30.87 H (1.80-7.70) X 10*3/uL Neutrophils # (Manual) (1.3-7.7) k/uL Lymphocytes # (Manual) (1.0-4.8) k/uL Monocytes # 1.44 H (0.20-1.00) X 10*3/uL Basophils # (Manual) (0-0.2) k/uL Microcytosis (manual) 2+ A D-Dimer (<0.60) mg/L FEU Chloride 110 H (98-107) mmol/L Carbon Dioxide 21.3 L (22-30) mmol/L BUN 38.8 H (7-17) mg/dL Creatinine (0.52-1.04) mg/dL Est GFR (CKD-EPI) 35 L (>=60) BUN/Creatinine Ratio 25.87 H (12.00-20.00) Ratio Glucose (74-99) mg/dL Plasma Lactic Acid Maxime (0.7-2.0) mmol/L Calcium 8.1 L (8.7-10.3) mg/dL Magnesium (1.6-2.3) mg/dL Total Bilirubin <0.2 L (0.3-1.2) mg/dL Total Protein 5.3 L (6.2-8.2) g/dL Albumin 3.1 L (3.8-4.9) g/dL Albumin/Globulin Ratio 1.41 L (1.60-3.17) Ratio Urine Protein 1+ H (Negative) Urine Blood Large H (Negative) Urine Nitrite Positive H (Negative) Ur Leukocyte Esterase Large H (Negative) Urine RBC 62 H (0-5) /hpf Urine WBC 17 H (0-5) /hpf Urine Bacteria Rare H (None) /hpf Urine Yeast (Budding) Rare H (None) /hpf Diabetes panel 07/12/24 07/13/24 Range/Units 16:43 05:08 Sodium 139 141 (137-145) mmol/L Potassium 4.2 4.7 (3.5-5.1) mmol/L Chloride 108 H 110 H (98-107) mmol/L Carbon Dioxide 18 L 21.3 L (22-30) mmol/L BUN 47 H 38.8 H (7-17) mg/dL Creatinine 1.88 H 1.5 (0.52-1.04) mg/dL Glucose 107 H 93 (74-99) mg/dL Calcium 9.1 8.1 L (8.4-10.2) mg/dL AST 28 21 (14-36) U/L ALT 18 11 (4-34) U/L Alkaline Phosphatase 115 78 (38-126) U/L Total Protein 7.4 5.3 L (6.3-8.2) g/dL Albumin 4.0 3.1 L (3.5-5.0) g/dL Calcium panel 07/12/24 07/13/24 Range/Units 16:43 05:08 Calcium 9.1 8.1 L (8.4-10.2) mg/dL Phosphorus 2.9 (2.5-4.5) mg/dL Albumin 4.0 3.1 L (3.5-5.0) g/dL Pituitary panel 07/12/24 07/13/24 Range/Units 16:43 05:08 Sodium 139 141 (137-145) mmol/L Potassium 4.2 4.7 (3.5-5.1) mmol/L Chloride 108 H 110 H (98-107) mmol/L Carbon Dioxide 18 L 21.3 L (22-30) mmol/L BUN 47 H 38.8 H (7-17) mg/dL Creatinine 1.88 H 1.5 (0.52-1.04) mg/dL Glucose 107 H 93 (74-99) mg/dL Calcium 9.1 8.1 L (8.4-10.2) mg/dL Adrenal panel 07/12/24 07/13/24 Range/Units 16:43 05:08 Sodium 139 141 (137-145) mmol/L Potassium 4.2 4.7 (3.5-5.1) mmol/L Chloride 108 H 110 H (98-107) mmol/L Carbon Dioxide 18 L 21.3 L (22-30) mmol/L BUN 47 H 38.8 H (7-17) mg/dL Creatinine 1.88 H 1.5 (0.52-1.04) mg/dL Glucose 107 H 93 (74-99) mg/dL Calcium 9.1 8.1 L (8.4-10.2) mg/dL Total Bilirubin 0.5 <0.2 L (0.2-1.3) mg/dL AST 28 21 (14-36) U/L ALT 18 11 (4-34) U/L Alkaline Phosphatase 115 78 (38-126) U/L Total Protein 7.4 5.3 L (6.3-8.2) g/dL Albumin 4.0 3.1 L (3.5-5.0) g/dL - Imaging CT scan - abdomen: report reviewed, image reviewed Assessment and Plan (1) Unspecified hydronephrosis Current Visit: Yes Status: Acute Code(s): N13.30 - UNSPECIFIED HYDRONEPHROSIS SNOMED Code(s): 60778363 (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 I have asked that her urine be strained. Urine and blood cultures have been ordered. It is noteworthy that a urine culture in January 2024 showed Enterococcus faecalis and Klebsiella pneumoniae. She is currently receiving ceftriaxone. I am confident that she will improve with antibiotics and not require urologic intervention. I discussed with her the fact that the adrenal nodule is likely a benign adenoma, and that upon follow-up with me evaluation will be obtained to confirm that this is not a functional adenoma. Time with Patient: Greater than 30
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
--- NOTE | 2024-07-13 19:33 | ED ---
Medical Decision Making - Medical Decision Making 78 female to the ER for evaluation of s abdominal pain. Patient has elevated white blood cell count elevated heart rate elevated breathing, patient also found to have likelihood of kidney infection. Patient will be admitted for IV antibiotics - Lab Data Result diagrams: 07/13/24 05:08 07/13/24 05:08 Lab Results 07/12/24 07/12/24 07/12/24 Range/Units 16:43 16:43 16:43 WBC 29.4 H (3.8-10.6) k/uL RBC 5.12 (3.80-5.40) m/uL Hgb 11.8 (11.4-16.0) gm/dL Hct 38.9 (34.0-46.0) % MCV 75.9 L (80.0-100.0) fL MCH 23.0 L (25.0-35.0) pg MCHC 30.3 L (31.0-37.0) g/dL RDW 16.7 H (11.5-15.5) % Plt Count 275 (150-450) k/uL MPV 9.5 Neutrophils % (Manual) 88 % Band Neuts % (Manual) 9 % Lymphocytes % (Manual) 1 % Monocytes % (Manual) 2 % Basophils % (Manual) 1 % Neutrophils # (Manual) 28.50 H (1.3-7.7) k/uL Lymphocytes # (Manual) 0.29 L (1.0-4.8) k/uL Monocytes # (Manual) 0.59 (0-1.0) k/uL Basophils # (Manual) 0.29 H (0-0.2) k/uL Nucleated RBCs 0 (0-0) /100 WBC Manual Slide Review Perf Hypochromasia Marked Anisocytosis Slight Microcytosis Slight PT 11.4 (10.0-12.5) sec INR 1.1 (<1.2) APTT 23.2 (22.0-30.0) sec D-Dimer 24.75 H (<0.60) mg/L FEU Sodium 139 (137-145) mmol/L Potassium 4.2 (3.5-5.1) mmol/L Chloride 108 H (98-107) mmol/L Carbon Dioxide 18 L (22-30) mmol/L Anion Gap 13 mmol/L BUN 47 H (7-17) mg/dL Creatinine 1.88 H (0.52-1.04) mg/dL Est GFR (CKD-EPI)AfAm 29 (>60 ml/min/1.73 sqM) Est GFR (CKD-EPI)NonAf 25 (>60 ml/min/1.73 sqM) Glucose 107 H (74-99) mg/dL Lactic Ac Sepsis Rflx Plasma Lactic Acid Maxime (0.7-2.0) mmol/L Calcium 9.1 (8.4-10.2) mg/dL Phosphorus 2.9 (2.5-4.5) mg/dL Magnesium 1.5 L (1.6-2.3) mg/dL Total Bilirubin 0.5 (0.2-1.3) mg/dL AST 28 (14-36) U/L ALT 18 (4-34) U/L Alkaline Phosphatase 115 (38-126) U/L Troponin I (0.000-0.034) ng/mL NT-Pro-B Natriuret Pep 504 pg/mL Total Protein 7.4 (6.3-8.2) g/dL Albumin 4.0 (3.5-5.0) g/dL Amylase 55 (30-110) U/L Lipase 87 (23-300) U/L 07/12/24 07/12/24 07/12/24 Range/Units 16:43 16:43 17:07 WBC (3.8-10.6) k/uL RBC (3.80-5.40) m/uL Hgb (11.4-16.0) gm/dL Hct (34.0-46.0) % MCV (80.0-100.0) fL MCH (25.0-35.0) pg MCHC (31.0-37.0) g/dL RDW (11.5-15.5) % Plt Count (150-450) k/uL MPV Neutrophils % (Manual) % Band Neuts % (Manual) % Lymphocytes % (Manual) % Monocytes % (Manual) % Basophils % (Manual) % Neutrophils # (Manual) (1.3-7.7) k/uL Lymphocytes # (Manual) (1.0-4.8) k/uL Monocytes # (Manual) (0-1.0) k/uL Basophils # (Manual) (0-0.2) k/uL Nucleated RBCs (0-0) /100 WBC Manual Slide Review Hypochromasia Anisocytosis Microcytosis PT (10.0-12.5) sec INR (<1.2) APTT (22.0-30.0) sec D-Dimer (<0.60) mg/L FEU Sodium (137-145) mmol/L Potassium (3.5-5.1) mmol/L Chloride (98-107) mmol/L Carbon Dioxide (22-30) mmol/L Anion Gap mmol/L BUN (7-17) mg/dL Creatinine (0.52-1.04) mg/dL Est GFR (CKD-EPI)AfAm (>60 ml/min/1.73 sqM) Est GFR (CKD-EPI)NonAf (>60 ml/min/1.73 sqM) Glucose (74-99) mg/dL Lactic Ac Sepsis Rflx Y Plasma Lactic Acid Maxime 4.4 H* (0.7-2.0) mmol/L Calcium (8.4-10.2) mg/dL Phosphorus (2.5-4.5) mg/dL Magnesium (1.6-2.3) mg/dL Total Bilirubin (0.2-1.3) mg/dL AST (14-36) U/L ALT (4-34) U/L Alkaline Phosphatase (38-126) U/L Troponin I <0.012 (0.000-0.034) ng/mL NT-Pro-B Natriuret Pep pg/mL Total Protein (6.3-8.2) g/dL Albumin (3.5-5.0) g/dL Amylase (30-110) U/L Lipase (23-300) U/L - Radiology Data Radiology results: report reviewed (CT abdomen pelvis positive pyelonephritis), image reviewed Critical Care Time Critical Care Time: Yes Total Critical Care Time: 31 Disposition Clinical Impression: JAMI (acute kidney injury), UTI (urinary tract infection), Abdominal pain, Pyelonephritis, Leukocytosis, CKD (chronic kidney disease), Sepsis Disposition: ADMITTED IP TO THIS HOSP Condition: Serious Is patient prescribed a controlled substance at d/c from ED?: No Procedures - Sepsis Sepsis Focused Exam #1 Time Sepsis Criteria Met: 18:00 Sepsis Focused Exam Date: 07/12/24 Sepsis Focused Exam Time: 23:00 Sepsis Focused Exam Complete: Yes Vital Signs & RN Notes Reviewed: Yes Capillary Refill: < 2 Seconds: Fingers, Toes Peripheral Pulses: Normal: Radial (R), Radial (L), Posterior Tibialis (R), Posterior Tibialis (L), Dorsalis Pedis (R), Dorsalis Pedis (L) Skin Color: Flushed Respiratory Exam: normal lung sounds Cardiovascular Exam: tachycardia
[2024-07-13] MEDS: SERTRALINE 100 MG TAB PO SCH (23:36)
[2024-07-13] MEDS: MELATONIN 5 MG TABLET PO SCH (23:36)
[2024-07-13] MEDS: ARIPiprazole 2 MG TAB PO SCH (23:36)
[2024-07-13] MEDS: GABAPENTIN 100 MG CAP PO SCH (23:37)
[2024-07-13] MEDS: METOPROLOL SUCCINATE (ER) 50 MG TAB.ER.24H PO SCH (23:37)
[2024-07-13] MEDS: ATORVASTATIN 20 MG TAB PO SCH (23:37)
[2024-07-13] MEDS: DONEPEZIL 10 MG TAB PO SCH (23:37)
[2024-07-13] MEDS: DOCUSATE 100 MG CAP PO SCH (23:38)
[2024-07-14 08:42] LABS: ALT 13 U/L (8-44); AST 16 U/L (13-35); Albumin 3.1 g/dL (3.8-4.9); Albumin/Globulin Ratio 1.29 Ratio (1.60-3.17); Alkaline Phosphatase 106 U/L (41-126); Blood Urea Nitrogen 28.6 mg/dL (9.0-27.0); Calcium 8.3 mg/dL (8.7-10.3); Carbon Dioxide 19.8 mmol/L (21.6-31.8); Chloride 108 mmol/L (96-109); Globulin 2.4 g/dL (1.6-3.3); Glucose 98 mg/dL (70-110); Potassium 4.3 mmol/L (3.5-5.5); Sodium 138 mmol/L (135-145); Total Bilirubin 0.3 mg/dL (0.3-1.2); Total Protein 5.5 g/dL (6.2-8.2)
[2024-07-14] MEDS: CHOLECALCIFEROL 25 MCG (1000 IU) TABLET PO SCH (08:44)
[2024-07-14] MEDS: NON FORMULARY DRUG (Atomoxetine Hcl [Strattera] 40 MG Capsule) PO SCH (08:44)
[2024-07-14] MEDS: FOLIC ACID 1 MG TAB PO SCH (08:44)
[2024-07-14] MEDS: traMADol 50 MG TAB PO SCH (08:45)
[2024-07-14 08:56] LABS: Basophils # (A) 0.04 X 10*3/uL (0.00-0.10); Basophils % (A) 0.2 %; Eosinophils # (A) 0.07 X 10*3/uL (0.04-0.35); Eosinophils % (A) 0.3 %; HCT 30.5 % (37.2-46.3); Lymphocytes # (A) 0.99 X 10*3/uL (0.90-5.00); Lymphocytes % (A) 4.5 %; MCH 22.6 pg (27.0-32.0); MCHC 29.5 g/dL (32.0-37.0); MCV 76.4 FL (80.0-97.0); Monocytes # (A) 1.22 X 10*3/uL (0.20-1.00); Monocytes % (A) 5.6 %; NRBC Per 100 WBC 0 X 10*3/uL (0.00-0.01); Neutrophils % (A) 88.4 %; Platelet Count 179 X 10*3/uL (140-440); RBC 3.99 X 10*6/uL (4.10-5.20); RDW 17.6 % (11.5-14.5); WBC 21.83 X 10*3/uL (4.50-10.00)
[2024-07-14] MEDS: CLOPIDOGREL 75 MG TAB PO SCH (08:57)
[2024-07-14] MEDS: ENOXAPARIN 30 MG/0.3 ML SYRINGE SQ SCH (08:57)
[2024-07-14] MEDS: LOSARTAN 50 MG TAB PO SCH (08:57)
[2024-07-14] MEDS: modafiniL 100 MG TAB PO SCH (08:58)
[2024-07-14] MEDS: TROSPIUM CHLORIDE 20 MG TABLET PO SCH (09:39)
--- NOTE | 2024-07-14 18:16 | P.PN ---
Subjective Patient is seen for follow-up for acute kidney injury and nephrolithiasis. Renal function has improved with serum creatinine down to 1.3 today. Patient does not feel she has passed any stone yet. The urine is being strained. No abdominal pain reported. Objective - Vital Signs Vital signs: Vital Signs Temp 98.2 F 07/14/24 13:51 Pulse 91 07/14/24 13:51 Resp 17 07/14/24 13:51 BP 125/76 07/14/24 13:51 Pulse Ox 99 07/14/24 13:51 FiO2 Intake & Output 07/13/24 07/14/24 07/14/24 18:59 06:59 18:59 Output Total 800 550 Balance -800 -550 Weight 99.79 kg 112 kg Output: Urine 800 550 Other: # Voids 0 # Bowel Movements 1 - Exam Patient is awake, comfortable, no acute distress Alert oriented x 3 Examination of the heart S1 and S2 Examination of the lungs bilateral breath sounds are heard Abdomen is soft nontender Examination of the lower extremities shows no significant edema - Labs CBC & Chem 7: 07/14/24 03:36 07/14/24 03:36 Labs: Abnormal Lab Results - Last 24 Hours (Table) 07/14/24 07/14/24 Range/Units 03:36 03:36 WBC 21.83 H (4.50-10.00) X 10*3/uL RBC 3.99 L (4.10-5.20) X 10*6/uL Hgb 9.0 L (12.0-15.0) g/dL Hct 30.5 L (37.2-46.3) % MCV 76.4 L (80.0-97.0) FL MCH 22.6 L (27.0-32.0) pg MCHC 29.5 L (32.0-37.0) g/dL RDW 17.6 H (11.5-14.5) % Immature Gran # 0.21 H (0.00-0.04) X 10*3/uL Neutrophils # 19.30 H (1.80-7.70) X 10*3/uL Monocytes # 1.22 H (0.20-1.00) X 10*3/uL Carbon Dioxide 19.8 L (21.6-31.8) mmol/L BUN 28.6 H (9.0-27.0) mg/dL Est GFR (CKD-EPI) 42 L (>=60) BUN/Creatinine Ratio 22.00 H (12.00-20.00) Ratio Calcium 8.3 L (8.7-10.3) mg/dL Total Protein 5.5 L (6.2-8.2) g/dL Albumin 3.1 L (3.8-4.9) g/dL Albumin/Globulin Ratio 1.29 L (1.60-3.17) Ratio Microbiology - Last 24 Hours (Table) 07/13/24 10:08 Blood Culture - Preliminary Blood 07/12/24 18:48 Blood Culture Gram Stain - Preliminary Blood Blood Culture - Preliminary Proteus mirabilis Molecular ID Assessment and Plan Assessment: 1. 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 Baseline creatinine 1.0 ( 2019), presented creatinine 1.8. UA concerning for infection. CT showed left hydronephrosis with possible left perinephric inflammation with 4mm bladder stone. 2. Acute left pyelonephritis 3. Hypomagnesemia 4. Acute nephrolithiasis with mild left hydronephrosis.. Patient has been evaluated by urology. It appears that the ureteral stone has now moved into the bladder. Plan: Continue with IV fluids. Repeat labs in AM. Continue to strain urine.
--- NOTE | 2024-07-14 19:11 | P.PN ---
Subjective Progress Note Date: 07/14/24 HISTORY OF PRESENT ILLNESS: This is a 78-year-old female with a previous medical history signif icant for hypertension and hypertensive cardiovascular disease, hyperlipidemia, history of cerebrovascular accident in the past, history of recurrent urinary tract infection, history of overactive bladder, chronic kidney disease stage IIIb, patient was recently diagnosed of having COVID-19 in July 07, and she was treated with molnupiravir, apparently patient presented to the emergency department at [facility] yesterday with multiple complaints the most important 1 month increased pain in the left lower abdomen, patient had a chest x-ray did not show evidence of acute normalities, she did have significant leukocytosis with lactic acidosis, her white count were up to 29,000, her lactic acid was up to 3.3 patient ended up going for a CT scan of the abdomen pelvis that showed evidence of left hydroureteronephrosis with minimal fat stranding, also there was evidence of 4 mm stone in the posterior part of the bladder, this is was suggestive of possible passed stone, there was also indeterminate 2.5 cm left adrenal gland nodule and moderate-sized hiatal hernia, patient D-dimer was elevated but that is likely related to her recent COVID infection, she ended up going for a VQ scan that was negative for pulm embolism as a matter fact it did show low probability for pulmonary embolism, patient was admitted to hospital for evaluation and treatment and she was started on IV antibiotic in the form of ceftriaxone 2 g piggyback every 24 hours, nephrology consultation was obtained from Dr. Wilson as well as urology consultation Dr. Montoya 07/14: Patient is sitting up in bed in no apparent distress, she is feeling better, she denies any chest pain, or shortness of breath, she has no abdominal pain, she is feeling much better than yesterday, her urine is clear at this point in time, her white count is down to 21,000, she is currently on ceftriaxone 2 g piggyback every 24 hours, patient does appear to have a bacteremia with Proteus Mirabella's, we will continue with ceftriaxone for now, waiting for the final result of the blood culture, repeat blood cultures again to make sure the bacteremia has resolved, repeat CBC tomorrow morning, urology and nephrology is following. REVIEW OF SYSTEMS: Constitutional: poaitive for fever, no chills, no night sweats. No weight sonya nge. No weakness, fatigue or lethargy. No daytime sleepiness. EENT: No headache. No blurred vision or double vision, no loss of vision. No loss of Hearing, no ringing in the ears, no dizziness. No nasal drainage or congestion. No epistaxis. No sore throat. Lungs: positive for shortness of breath, occasional cough, minimal sputum production. No wheezing. Reports dyspnea with activity. Cardiovascular: No chest pain, no lower extremity edema. No palpitations. No paroxysmal nocturnal dyspnea. No orthopnea. No lightheadedness or dizziness. No syncopal episodes. Abdominal: Reports abdominal pain left sided, positive for nausea, vomiting. No diarrhea. No constipation. No bloody or tarry stools reports loss of appetite. Genitourinary: No dysuria, increased frequency, urgency. No urinary retention. Musculoskeletal: No myalgias. positive for muscle weakness, positive for gait dysfunction, no frequent falls. No back pain. No neck pain. Integumentary: No wounds, no lesions. No rash or pruritus. No unusual bruising. No change in hair or nails. Neurologic: No aphasia. No facial droop. No change in mentation. No head injury. No headache. No paralysis. No paresthesia. Psychiatric: positive for depression. positive for anxiety. No mood swings. Endocrine: No abnormal blood sugars. No weight change. PHYSICAL EXAMINATION: General: 78-year-old female laying down in bed in no apparent distress. HEENT: Head is atraumatic, normocephalic, pupils were equal round reactive to light and recommendation, extraocular muscle movement were intact, sclera nonic teric, conjunctivae were pale, mucous membranes of the mouth are somewhat dry. Neck: Supple, no JVP, normal carotid upstroke bilaterally, no lymphadenopathy. Chest: Decreased breath sounds at the bases, few rhonchi, no expiratory wheezes, no chest wall tenderness, no intercostal retractions. Heart: First heart sound is normal, second heart sounds normal there is systolic ejection murmur 2/6 located in the left sternal border. Abdomen: Soft, nontender, nondistended, positive bowel sounds. Extremities: There is no edema no calf tenderness DP +2 bilaterally. Neurologic examination: Patient is awake alert and oriented x3, cranial nerves II-12 appear grossly intact, muscle power were 5 out of 5 in upper extremities and 5 out of 5 in bilateral lower extremities, deep tendon reflexes normal bila terally. ASSESSMENT AND PLAN: 1. Mild left sided hydro ureteral nephrosis with peripheral fat stranding suggestive of pyelonephritis with sepsis due to a recent passed stone. Continue IV fluid resuscitation in the form of normal saline 75 cc an hour, continue IV antibiotic in the form of ceftriaxone 2 g IV every 24 hours, urine culture blood culture, urology consultation as well as nephrology consultation will be obtained. 2. Proteus Mirabella's bacteremia. Continue ceftriaxone 2 g piggyback every 24 hours, repeat blood cultures again to ensure clearance. 3. Recent COVID-19 infection that was treated with molnupiravir. D-dimer is elevated VQ scan low probability for pulmonary embolism 4. Acute kidney injury on chronic kidney disease stage IIIb. Continue IV fluid, avoid nephrotoxins, repeat CMP tomorrow morning. 5. Lactic acidosis. Continue IV fluid resuscitation repeat lactic acid in 6 hours. 6. Leukocytosis likely related to recent steroid use as well as pyelonephritis with sepsis. Continue IV antibiotic in the form of ceftriaxone 1 g IV mag every 24 hours, check urine culture and blood culture. Repeat CBC tomorrow morning. 7. Hypertension and hypertensive cardiovascular disease. Continue patient on losartan 100 mg once every day, metoprolol ER 50 mg orally once every day, monitor the patient blood pressure very closely 8. Mixed hyperlipidemia. Continue atorvastatin 20 mg once every day, monitor lipid panel, keep LDL 55-70. 9. History of CVA in the past. Continue patient on Plavix 75 mg once every day, continue atorvastatin 20 mg once every day for secondary stroke prevention. 10. Overactive bladder. Continue Sanctura ER 60 mg orally once every day. 11. Moderate size hiatal hernia with GERD. Continue Protonix 40 mg orally once every day. 12. Left adrenal nodule 2.5 cm. Patient will have an MRI as an outpatient. 13. Vascular dementia. Continue Aricept 10 mg orally once every day. 14. Anxiety and depressive disorder. Continue patient on sertraline 200 mg once every day along with Abilify 2 mg orally once every day. 15. Peripheral neuropathy. Continue gabapentin 100 mg orally twice every day 16. DVT prophylaxis. Start the patient on Lovenox 30 mg subcutaneous every 24 hours. 17. GI prophylaxis. Protonix 40 mg orally once every day. 18. Continue to follow the patient. Objective - Vital Signs Vital signs: Vital Signs Temp 98.2 F 07/14/24 13:51 Pulse 91 07/14/24 13:51 Resp 17 07/14/24 13:51 BP 125/76 07/14/24 13:51 Pulse Ox 99 07/14/24 13:51 FiO2 Intake & Output 07/14/24 07/14/24 07/15/24 06:59 18:59 06:59 Output Total 550 Balance -550 Weight 112 kg Output: Urine 550 Other: # Voids 0 # Bowel Movements 1 - Labs CBC & Chem 7: 07/14/24 03:36 07/14/24 03:36 Labs: Abnormal Lab Results - Last 24 Hours (Table) 07/14/24 07/14/24 Range/Units 03:36 03:36 WBC 21.83 H (4.50-10.00) X 10*3/uL RBC 3.99 L (4.10-5.20) X 10*6/uL Hgb 9.0 L (12.0-15.0) g/dL Hct 30.5 L (37.2-46.3) % MCV 76.4 L (80.0-97.0) FL MCH 22.6 L (27.0-32.0) pg MCHC 29.5 L (32.0-37.0) g/dL RDW 17.6 H (11.5-14.5) % Immature Gran # 0.21 H (0.00-0.04) X 10*3/uL Neutrophils # 19.30 H (1.80-7.70) X 10*3/uL Monocytes # 1.22 H (0.20-1.00) X 10*3/uL Carbon Dioxide 19.8 L (21.6-31.8) mmol/L BUN 28.6 H (9.0-27.0) mg/dL Est GFR (CKD-EPI) 42 L (>=60) BUN/Creatinine Ratio 22.00 H (12.00-20.00) Ratio Calcium 8.3 L (8.7-10.3) mg/dL Total Protein 5.5 L (6.2-8.2) g/dL Albumin 3.1 L (3.8-4.9) g/dL Albumin/Globulin Ratio 1.29 L (1.60-3.17) Ratio Microbiology - Last 24 Hours (Table) 07/13/24 10:08 Blood Culture - Preliminary Blood 07/12/24 18:48 Blood Culture Gram Stain - Preliminary Blood Blood Culture - Preliminary Proteus mirabilis Molecular ID
[2024-07-15 08:54] LABS: Basophils # (A) 0.04 X 10*3/uL (0.00-0.10); Basophils % (A) 0.3 %; Eosinophils # (A) 0.12 X 10*3/uL (0.04-0.35); Eosinophils % (A) 0.9 %; HCT 30.9 % (37.2-46.3); HGB 8.9 g/dL (12.0-15.0); Lymphocytes # (A) 1.45 X 10*3/uL (0.90-5.00); Lymphocytes % (A) 10.6 %; MCH 22.4 pg (27.0-32.0); MCHC 28.8 g/dL (32.0-37.0); MCV 77.6 FL (80.0-97.0); Monocytes # (A) 0.88 X 10*3/uL (0.20-1.00); Monocytes % (A) 6.4 %; NRBC Per 100 WBC 0 X 10*3/uL (0.00-0.01); Neutrophils # (A) 11.05 X 10*3/uL (1.80-7.70); Neutrophils % (A) 80.8 %; Platelet Count 172 X 10*3/uL (140-440); RBC 3.98 X 10*6/uL (4.10-5.20); RDW 17.8 % (11.5-14.5); WBC 13.67 X 10*3/uL (4.50-10.00)
[2024-07-15 08:59] LABS: ALT 11 U/L (8-44); AST 17 U/L (13-35); Albumin/Globulin Ratio 1.25 Ratio (1.60-3.17); Alkaline Phosphatase 107 U/L (41-126); BUN/Creat Ratio 20.46 Ratio (12.00-20.00); Blood Urea Nitrogen 26.6 mg/dL (9.0-27.0); Calcium 8.3 mg/dL (8.7-10.3); Carbon Dioxide 20.8 mmol/L (21.6-31.8); Chloride 106 mmol/L (96-109); Globulin 2.4 g/dL (1.6-3.3); Glucose 89 mg/dL (70-110); Potassium 4.5 mmol/L (3.5-5.5); Sodium 137 mmol/L (135-145); Total Bilirubin 0.2 mg/dL (0.3-1.2); Total Protein 5.4 g/dL (6.2-8.2)
[2024-07-15] MEDS: ENOXAPARIN 40 MG/0.4 ML SYRINGE SQ SCH (08:59)
--- NOTE | 2024-07-15 19:40 | P.PN ---
Subjective Progress Note Date: 07/15/24 HISTORY OF PRESENT ILLNESS: This is a 78-year-old female with a previous medical history signif icant for hypertension and hypertensive cardiovascular disease, hyperlipidemia, history of cerebrovascular accident in the past, history of recurrent urinary tract infection, history of overactive bladder, chronic kidney disease stage IIIb, patient was recently diagnosed of having COVID-19 in July 07, and she was treated with molnupiravir, apparently patient presented to the emergency department at [facility] yesterday with multiple complaints the most important 1 month increased pain in the left lower abdomen, patient had a chest x-ray did not show evidence of acute normalities, she did have significant leukocytosis with lactic acidosis, her white count were up to 29,000, her lactic acid was up to 3.3 patient ended up going for a CT scan of the abdomen pelvis that showed evidence of left hydroureteronephrosis with minimal fat stranding, also there was evidence of 4 mm stone in the posterior part of the bladder, this is was suggestive of possible passed stone, there was also indeterminate 2.5 cm left adrenal gland nodule and moderate-sized hiatal hernia, patient D-dimer was elevated but that is likely related to her recent COVID infection, she ended up going for a VQ scan that was negative for pulm embolism as a matter fact it did show low probability for pulmonary embolism, patient was admitted to hospital for evaluation and treatment and she was started on IV antibiotic in the form of ceftriaxone 2 g piggyback every 24 hours, nephrology consultation was obtained from Dr. Wilson as well as urology consultation Dr. Montoya 07/14: Patient is sitting up in bed in no apparent distress, she is feeling better, she denies any chest pain, or shortness of breath, she has no abdominal pain, she is feeling much better than yesterday, her urine is clear at this point in time, her white count is down to 21,000, she is currently on ceftriaxone 2 g piggyback every 24 hours, patient does appear to have a bacteremia with Proteus Mirabella's, we will continue with ceftriaxone for now, waiting for the final result of the blood culture, repeat blood cultures again to make sure the bacteremia has resolved, repeat CBC tomorrow morning, urology and nephrology is following. 07/15: Patient sitting up in bed is feeling better today, she continues to be on IV fluid in the form of normal saline 75 cc an hour, her creatinine is down, her white count is down to 13,000, continue to decrease her IV fluid to 50 cc an hour, continue IV antibiotic in the form of ceftriaxone 2 g piggyback every 24 hours, repeated blood cultures are pending, initial blood cultures were positive for Proteus Mirabilis patient will need to stay on IV antibiotic until clearance of the blood culture, then she can be switched to oral Ceftin 500 mg orally twice every day for 2 weeks. REVIEW OF SYSTEMS: Constitutional: poaitive for fever, no chills, no night sweats. No weight change. No weakness, fatigue or lethargy. No daytime sleepiness. EENT: No headache. No blurred vision or double vision, no loss of vision. No loss of Hearing, no ringing in the ears, no dizziness. No nasal drainage or congestion. No epistaxis. No sore throat. Lungs: positive for shortness of breath, occasional cough, minimal sputum production. No wheezing. Reports dyspnea with activity. Cardiovascular: No chest pain, no lower extremity edema. No palpitations. No paroxysmal nocturnal dyspnea. No orthopnea. No lightheadedness or dizziness. No syncopal episodes. Abdominal: Reports abdominal pain left sided, positive for nausea, vomiting. No diarrhea. No constipation. No bloody or tarry stools reports loss of appetite. Genitourinary: No dysuria, increased frequency, urgency. No urinary retention. Musculoskeletal: No myalgias. positive for muscle weakness, positive for gait dysfunction, no frequent falls. No back pain. No neck pain. Integumentary: No wounds, no lesions. No rash or pruritus. No unusual bruising. No change in hair or nails. Neurologic: No aphasia. No facial droop. No change in mentation. No head injury. No headache. No paralysis. No paresthesia. Psychiatric: positive for depression. positive for anxiety. No mood swings. Endocrine: No abnormal blood sugars. No weight change. PHYSICAL EXAMINATION: General: 78-year-old female laying down in bed in no apparent distress. HEENT: Head is atraumatic, normocephalic, pupils were equal round reactive to light and recommendation, extraocular muscle movement were intact, sclera nonicteric, conjunctivae were pale, mucous membranes of the mouth are somewhat dry. Neck: Supple, no JVP, normal carotid upstroke bilaterally, no lymphadenopathy. Chest: Decreased breath sounds at the bases, few rhonchi, no expiratory wheezes, no chest wall tenderness, no intercostal retractions. Heart: First heart sound is normal, second heart sounds normal there is systolic ejection murmur 2/6 located in the left sternal border. Abdomen: Soft, nontender, nondistended, positive bowel sounds. Extremities: There is no edema no calf tenderness DP +2 bilaterally. Neurologic examination: Patient is awake alert and oriented x3, cranial nerves II-12 appear grossly intact, muscle power were 5 out of 5 in upper extremities and 5 out of 5 in bilateral lower extremities, deep tendon reflexes normal bilaterally. ASSESSMENT AND PLAN: 1. Mild left sided hydro ureteral nephrosis with peripheral fat stranding suggestive of pyelonephritis with sepsis due to a recent passed stone. Continue IV fluid resuscitation in the form of normal saline 50 cc an hour, continue IV antibiotic in the form of ceftriaxone 2 g IV every 24 hours, urine culture blood culture, urology consultation as well as nephrology consultation will be obtained. 2. Proteus Mirabella's bacteremia. Continue ceftriaxone 2 g piggyback every 24 hours, repeat blood cultures again to ensure clearance. 3. Recent COVID-19 infection that was treated with molnupiravir. D-dimer is elevated VQ scan low probability for pulmonary embolism 4. Acute kidney injury on chronic kidney disease stage IIIb. Continue IV fluid, avoid nephrotoxins, repeat CMP tomorrow morning. Back to baseline. 5. Lactic acidosis. Continue IV fluid resuscitation repeat lactic acid in 6 hours. Back to baseline. 6. Leukocytosis likely related to recent steroid use as well as pyelonephritis with sepsis. Continue IV antibiotic in the form of ceftriaxone 1 g IV mag every 24 hours, check urine culture and blood culture. Repeat CBC tomorrow morning. Better. 7. Hypertension and hypertensive cardiovascular disease. Continue patient on losartan 100 mg once every day, metoprolol ER 50 mg orally once every day, monitor the patient blood pressure very closely 8. Mixed hyperlipidemia. Continue atorvastatin 20 mg once every day, monitor lipid panel, keep LDL 55-70. 9. History of CVA in the past. Continue patient on Plavix 75 mg once every day, continue atorvastatin 20 mg once every day for secondary stroke prevention. 10. Overactive bladder. Continue Sanctura ER 60 mg orally once every day. 11. Moderate size hiatal hernia with GERD. Continue Protonix 40 mg orally once every day. 12. Left adrenal nodule 2.5 cm. Patient will have an MRI as an outpatient. 13. Vascular dementia. Continue Aricept 10 mg orally once every day. 14. Anxiety and depressive disorder. Continue patient on sertraline 200 mg once every day along with Abilify 2 mg orally once every day. 15. Peripheral neuropathy. Continue gabapentin 100 mg orally twice every day 16. DVT prophylaxis. Start the patient on Lovenox 30 mg subcutaneous every 24 hours. 17. GI prophylaxis. Protonix 40 mg orally once every day. 18. Hopefully home in the next 24 hours. Objective - Vital Signs Vital signs: Vital Signs Temp 98.6 F 07/15/24 13:45 Pulse 104 H 07/15/24 13:45 Resp 18 07/15/24 13:45 BP 150/83 07/15/24 13:45 Pulse Ox 97 07/15/24 13:45 FiO2 Intake & Output 07/15/24 07/15/24 07/16/24 06:59 18:59 06:59 Output Total 400 Balance -400 Weight 116 kg Output: Urine 400 Other: # Voids 1 - Labs CBC & Chem 7: 07/15/24 03:13 07/15/24 03:13 Labs: Abnormal Lab Results - Last 24 Hours (Table) 07/15/24 07/15/24 Range/Units 03:13 03:13 WBC 13.67 H (4.50-10.00) X 10*3/uL RBC 3.98 L (4.10-5.20) X 10*6/uL Hgb 8.9 L (12.0-15.0) g/dL Hct 30.9 L (37.2-46.3) % MCV 77.6 L (80.0-97.0) FL MCH 22.4 L (27.0-32.0) pg MCHC 28.8 L (32.0-37.0) g/dL RDW 17.8 H (11.5-14.5) % Immature Gran # 0.13 H (0.00-0.04) X 10*3/uL Neutrophils # 11.05 H (1.80-7.70) X 10*3/uL Carbon Dioxide 20.8 L (21.6-31.8) mmol/L Est GFR (CKD-EPI) 42 L (>=60) BUN/Creatinine Ratio 20.46 H (12.00-20.00) Ratio Calcium 8.3 L (8.7-10.3) mg/dL Total Bilirubin 0.2 L (0.3-1.2) mg/dL Total Protein 5.4 L (6.2-8.2) g/dL Albumin 3.0 L (3.8-4.9) g/dL Albumin/Globulin Ratio 1.25 L (1.60-3.17) Ratio Microbiology - Last 24 Hours (Table) 07/13/24 10:08 Blood Culture - Preliminary Blood 07/12/24 18:48 Blood Culture Gram Stain - Final Blood Blood Culture - Final Proteus mirabilis Molecular ID 07/13/24 02:47 Urine Culture - Final Urine,Clean Catch
--- NOTE | 2024-07-15 22:03 | P.PN ---
Subjective Patient is seen for follow-up for acute kidney injury and nephrolithiasis. Renal function has improved with serum creatinine down to 1.3 today. Blood cultures positive for Proteus Mirabilis. Repeat cultures pending. No significant complaints today. Objective - Vital Signs Vital signs: Vital Signs Temp 98.6 F 07/15/24 19:45 Pulse 105 H 07/15/24 19:45 Resp 16 07/15/24 19:45 BP 150/89 07/15/24 19:45 Pulse Ox 99 07/15/24 19:45 FiO2 Intake & Output 07/15/24 07/15/24 07/16/24 06:59 18:59 06:59 Output Total 400 Balance -400 Weight 116 kg Output: Urine 400 Other: # Voids 1 - Exam Patient is awake, comfortable, no acute distress Alert oriented x 3 Examination of the heart S1 and S2 Examination of the lungs bilateral breath sounds are heard Abdomen is soft nontender Examination of the lower extremities shows no significant edema - Labs CBC & Chem 7: 07/15/24 03:13 07/15/24 03:13 Labs: Abnormal Lab Results - Last 24 Hours (Table) 07/15/24 07/15/24 Range/Units 03:13 03:13 WBC 13.67 H (4.50-10.00) X 10*3/uL RBC 3.98 L (4.10-5.20) X 10*6/uL Hgb 8.9 L (12.0-15.0) g/dL Hct 30.9 L (37.2-46.3) % MCV 77.6 L (80.0-97.0) FL MCH 22.4 L (27.0-32.0) pg MCHC 28.8 L (32.0-37.0) g/dL RDW 17.8 H (11.5-14.5) % Immature Gran # 0.13 H (0.00-0.04) X 10*3/uL Neutrophils # 11.05 H (1.80-7.70) X 10*3/uL Carbon Dioxide 20.8 L (21.6-31.8) mmol/L Est GFR (CKD-EPI) 42 L (>=60) BUN/Creatinine Ratio 20.46 H (12.00-20.00) Ratio Calcium 8.3 L (8.7-10.3) mg/dL Total Bilirubin 0.2 L (0.3-1.2) mg/dL Total Protein 5.4 L (6.2-8.2) g/dL Albumin 3.0 L (3.8-4.9) g/dL Albumin/Globulin Ratio 1.25 L (1.60-3.17) Ratio Microbiology - Last 24 Hours (Table) 07/13/24 10:08 Blood Culture - Preliminary Blood 07/12/24 18:48 Blood Culture Gram Stain - Final Blood Blood Culture - Final Proteus mirabilis Molecular ID 07/13/24 02:47 Urine Culture - Final Urine,Clean Catch Assessment and Plan Assessment: 1. 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 Baseline creatinine 1.0 (2019), presented creatinine 1.8. UA concerning for infection. CT showed left hydronephrosis with possible left perinephric inflammation with 4mm bladder stone. 2. Acute left pyelonephritis 3. Hypomagnesemia 4. Acute nephrolithiasis with mild left hydronephrosis.. Patient has been evaluated by urology. It appears that the ureteral stone has now moved into the bladder. 5. Gram-negative bacteremia with blood cultures growing Proteus mirabilis Plan: Continue with IV fluids. Continue with IV antibiotics Follow-up on repeat blood cultures. Continue to strain urine.
[2024-07-16 08:12] VITALS: PULSE 106; RESP 19; TEMP 99.4
--- NOTE | 2024-07-16 08:13 | P.DS ---
Providers Date of admission: 07/12/24 18:04 Expected date of discharge: 07/16/24 Attending physician: Phani Estevez Consults: 07/12/24 18:02 Consult Physician Routine Consulting Provider: Juni Basilio Consult Reason/Comments: CKD Do you want consulting provider notified?: Yes 07/13/24 09:48 Consult Physician Routine Consulting Provider: Matt Montoya Consult Reason/Comments: left hydronephrosis Do you want consulting provider notified?: Yes Primary care physician: Phani Estevez Hospital Course: HISTORY OF PRESENT ILLNESS: This is a 78-year-old female with a previous medical history significant for hypertension and hypertensive cardiovascular disease, hyperlipidemia, history of cerebrovascular accident in the past, history of recurrent urinary tract infection, history of overactive bladder, chronic kidney disease stage IIIb, patient was recently diagnosed of having COVID-19 in July 07, and she was treated with molnupiravir, apparently patient presented to the emergency department at [facility] yesterday with multiple complaints the most important 1 month increased pain in the left lower abdomen, patient had a chest x-ray did not show evidence of acute normalities, she did have significant leukocytosis with lactic acidosis, her white count were up to 29,000, her lactic acid was up to 3.3 patient ended up going for a CT scan of the abdomen pelvis that showed evidence of left hydroureteronephrosis with minimal fat stranding, also there was evidence of 4 mm stone in the posterior part of the bladder, this is was suggestive of possible passed stone, there was also indeterminate 2.5 cm left adrenal gland nodule and moderate-sized hiatal hernia, patient D-dimer was elevated but that is likely related to her recent COVID infection, she ended up going for a VQ scan that was negative for pulm embolism as a matter fact it did show low probability for pulmonary embolism, patient was admitted to hospital for evaluation and treatment and she was started on IV antibiotic in the form of ceftriaxone 2 g piggyback every 24 hours, nephrology consultation was obtained from Dr. Wilson as well as urology consultation Dr. Montoya 07/14: Patient is sitting up in bed in no apparent distress, she is feeling better, she denies any chest pain, or shortness of breath, she has no abdominal pain, she is feeling much better than yesterday, her urine is clear at this point in time, her white count is down to 21,000, she is currently on ceftriaxone 2 g piggyback every 24 hours, patient does appear to have a bacteremia with Proteus Mirabella's, we will continue with ceftriaxone for now, waiting for the final result of the blood culture, repeat blood cultures again to make sure the bacteremia has resolved, repeat CBC tomorrow morning, urology and nephrology is following. 07/15: Patient sitting up in bed is feeling better today, she continues to be on IV fluid in the form of normal saline 75 cc an hour, her creatinine is down, her white count is down to 13,000, continue to decrease her IV fluid to 50 cc an hour, continue IV antibiotic in the form of ceftriaxone 2 g piggyback every 24 hours, repeated blood cultures are pending, initial blood cultures were positive for Proteus Mirabilis patient will need to stay on IV antibiotic until clearance of the blood culture, then she can be switched to oral Ceftin 500 mg orally twice every day for 2 weeks. 07/16: Patient has been continued on ceftriaxone 2 g IV piggyback every day. Her blood cultures have been showing no growth from 07/13 and 07/14. Patient has been afebrile. Blood pressure 155/90, heart rate 105, pulse ox 95% on room air. Patient has been followed by nephrology for acute kidney injury and nephrolithiasis. Creatinine has improved. Plan is for discharge home today. Patient's antibiotics will be switched to oral Ceftin. Patient will be discharged once all arrangements are completed. Discharge diagnoses: 1. Mild left sided hydroureteral nephrosis with peripheral fat stranding suggestive of pyelonephritis with sepsis due to a recent passed stone. 2. Proteus Mirabella's bacteremia. 3. Recent COVID-19 infection that was treated with molnupiravir. 4. Acute kidney injury on chronic kidney disease stage IIIb. 5. Lactic acidosis. 6. Leukocytosis likely related to recent steroid use as well as pyelonephritis with sepsis. 7. Hypertension and hypertensive cardiovascular disease. 8. Mixed hyperlipidemia. 9. History of CVA in the past. 10. Overactive bladder. 11. Moderate size hiatal hernia with GERD. 12. Left adrenal nodule 2.5 cm. 13. Vascular dementia. 14. Anxiety and depressive disorder. 15. Peripheral neuropathy. Discharge plan: Home Greater than 35 minutes was utilized and coordinating patient's discharge. Impression and plan of care have been directed as dictated by the signing physician. Mere Holloway nurse practitioner acting as scribe for signing physician. Patient Condition at Discharge: Stable Plan - Discharge Summary Discharge Rx Participant: No New Discharge Prescriptions: New cefuroxime axetiL [Ceftin] 500 mg PO BID #28 tab Continue Clopidogrel [Plavix] 75 mg PO DAILY Atorvastatin [Lipitor] 20 mg PO HS Sertraline [Zoloft] 200 mg PO HS Folic Acid 1 mg PO DAILY Cholecalciferol [Vitamin D3 (25 Mcg = 1000 Iu)] 25 mcg PO DAILY Atomoxetine HCl [Strattera] 80 mg PO DAILY Losartan Potassium [Cozaar] 100 mg PO DAILY Donepezil [Aricept] 10 mg PO HS Docusate [Colace] 100 mg PO HS ARIPiprazole [Abilify] 2 mg PO HS Metoprolol Succinate (ER) [Toprol XL] 50 mg PO HS traMADol HCL 50 mg PO DAILY Trospium Chloride [Sanctura XR] 60 mg PO DAILY Gabapentin [Neurontin] 100 mg PO BID modafiniL [Provigil] 100 mg PO DAILY Melatonin 10 mg PO HS Discharge Medication List Atorvastatin [Lipitor] 20 mg PO HS 10/09/19 [History] Clopidogrel [Plavix] 75 mg PO DAILY 10/09/19 [History] Sertraline [Zoloft] 200 mg PO HS 10/09/19 [History] ARIPiprazole [Abilify] 2 mg PO HS 07/12/24 [History] Atomoxetine HCl [Strattera] 80 mg PO DAILY 07/12/24 [History] Cholecalciferol [Vitamin D3 (25 Mcg = 1000 Iu)] 25 mcg PO DAILY 07/12/24 [History] Docusate [Colace] 100 mg PO HS 07/12/24 [History] Donepezil [Aricept] 10 mg PO HS 07/12/24 [History] Folic Acid 1 mg PO DAILY 07/12/24 [History] Gabapentin [Neurontin] 100 mg PO BID 07/12/24 [History] Losartan Potassium [Cozaar] 100 mg PO DAILY 07/12/24 [History] Melatonin 10 mg PO HS 07/12/24 [History] Metoprolol Succinate (ER) [Toprol XL] 50 mg PO HS 07/12/24 [History] Trospium Chloride [Sanctura XR] 60 mg PO DAILY 07/12/24 [History] modafiniL [Provigil] 100 mg PO DAILY 07/12/24 [History] traMADol HCL 50 mg PO DAILY 07/12/24 [History] cefuroxime axetiL [Ceftin] 500 mg PO BID #28 tab 07/16/24 [Rx] Follow up Appointment(s)/Referral(s): Phani Estevez MD [Primary Care Provider] - 1 Week Judy Cummins MD [STAFF PHYSICIAN] - 1 Week Activity/Diet/Wound Care/Special Instructions: [facility]: [phone] - they will call you to schedule your in home nursing, physical therapy, and occupational therapy visits. Discharge Disposition: HOME WITH HOME HEALTH SERVICES
[2024-07-16 09:14] LABS: Basophils # (A) 0.06 X 10*3/uL (0.00-0.10); Basophils % (A) 0.6 %; Eosinophils # (A) 0.18 X 10*3/uL (0.04-0.35); Eosinophils % (A) 1.7 %; HCT 30.5 % (37.2-46.3); HGB 8.9 g/dL (12.0-15.0); Lymphocytes # (A) 1.62 X 10*3/uL (0.90-5.00); MCH 22.3 pg (27.0-32.0); MCHC 29.2 g/dL (32.0-37.0); MCV 76.3 FL (80.0-97.0); Monocytes # (A) 0.81 X 10*3/uL (0.20-1.00); Monocytes % (A) 7.5 %; NRBC Per 100 WBC 0 X 10*3/uL (0.00-0.01); Neutrophils # (A) 7.88 X 10*3/uL (1.80-7.70); Neutrophils % (A) 73.2 %; Platelet Count 179 X 10*3/uL (140-440); WBC 10.77 X 10*3/uL (4.50-10.00)
[2024-07-16 09:35] LABS: ALT 12 U/L (8-44); AST 18 U/L (13-35); Albumin 2.9 g/dL (3.8-4.9); Albumin/Globulin Ratio 1.21 Ratio (1.60-3.17); Alkaline Phosphatase 102 U/L (41-126); BUN/Creat Ratio 17.77 Ratio (12.00-20.00); Blood Urea Nitrogen 23.1 mg/dL (9.0-27.0); Calcium 8.4 mg/dL (8.7-10.3); Carbon Dioxide 22.3 mmol/L (21.6-31.8); Chloride 108 mmol/L (96-109); Globulin 2.4 g/dL (1.6-3.3); Glucose 90 mg/dL (70-110); Potassium 4.5 mmol/L (3.5-5.5); Sodium 140 mmol/L (135-145); Total Bilirubin <0.2 mg/dL (0.3-1.2); Total Protein 5.3 g/dL (6.2-8.2)
[2024-07-16 12:05] VITALS: BP 158/79
--- NOTE | 2024-07-16 13:33 | P.PN ---
Subjective Patient is seen for follow-up for acute kidney injury and nephrolithiasis. Renal function has improved with serum creatinine down to 1.3 Blood cultures positive for Proteus Mirabilis. Repeat cultures remain negative No significant complaints today. Patient did pass the stone. She did not have any significant pain. Objective - Vital Signs Vital signs: Vital Signs Temp 99.4 F 07/16/24 07:03 Pulse 106 H 07/16/24 07:03 Resp 19 07/16/24 07:03 BP 158/79 07/16/24 12:04 Pulse Ox 95 07/16/24 07:03 FiO2 Intake & Output 07/15/24 07/16/24 07/16/24 18:59 06:59 18:59 Output Total 1200 Balance -1200 Weight 116 kg Output: Urine 1200 Other: # Voids 1 1 - Exam Patient is awake, comfortable, no acute distress Alert oriented x 3 Examination of the heart S1 and S2 Examination of the lungs bilateral breath sounds are heard Abdomen is soft nontender Examination of the lower extremities shows no significant edema - Labs CBC & Chem 7: 07/16/24 04:12 07/16/24 04:12 Labs: Abnormal Lab Results - Last 24 Hours (Table) 07/16/24 07/16/24 Range/Units 04:12 04:12 WBC 10.77 H (4.50-10.00) X 10*3/uL RBC 4.00 L (4.10-5.20) X 10*6/uL Hgb 8.9 L (12.0-15.0) g/dL Hct 30.5 L (37.2-46.3) % MCV 76.3 L (80.0-97.0) FL MCH 22.3 L (27.0-32.0) pg MCHC 29.2 L (32.0-37.0) g/dL RDW 18.0 H (11.5-14.5) % Immature Gran # 0.22 H (0.00-0.04) X 10*3/uL Neutrophils # 7.88 H (1.80-7.70) X 10*3/uL Est GFR (CKD-EPI) 42 L (>=60) Calcium 8.4 L (8.7-10.3) mg/dL Total Bilirubin <0.2 L (0.3-1.2) mg/dL Total Protein 5.3 L (6.2-8.2) g/dL Albumin 2.9 L (3.8-4.9) g/dL Albumin/Globulin Ratio 1.21 L (1.60-3.17) Ratio Microbiology - Last 24 Hours (Table) 07/14/24 20:45 Blood Culture - Preliminary Blood 07/13/24 10:08 Blood Culture - Preliminary Blood 07/12/24 18:48 Blood Culture Gram Stain - Final Blood Blood Culture - Final Proteus mirabilis Molecular ID Assessment and Plan Assessment: 1. 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 Baseline creatinine 1.0 (2020), presented creatinine 1.8. UA concerning for infection. CT showed left hydronephrosis with possible left perinephric inflammation with 4mm bladder stone. 2. Acute left pyelonephritis 3. Hypomagnesemia 4. Acute nephrolithiasis with mild left hydronephrosis.. Patient has been evaluated by urology. It appears that the ureteral stone has now moved into the bladder. 5. Gram-negative bacteremia with blood cultures growing Proteus mirabilis Plan: stable for discharge from nephrology standpoint. follow-up with urology post discharge
== END 2024-07-16 16:22 | disposition home health service (06) | DRG 872 ==
LOC: EC 14:45 → 4SSUR 18:04 → 3SCARD 07-13 05:03 → 4SSUR 07-13 08:37
PROVIDERS: ADMIT Internal Medicine; ATTEND Internal Medicine
DX: A41.9 Sepsis, unspecified organism (principal); N13.6 Pyonephrosis; N17.9 Acute kidney failure, unspecified; E87.20 Acidosis, unspecified; F01.54 Vascular dementia, unspecified severity, with anxiety; I12.9 Hypertensive chronic kidney disease with stage 1 through stage 4 chronic kidney disease, or unspecified chronic kidney disease; N18.32 Chronic kidney disease, stage 3b; K21.9 Gastro-esophageal reflux disease without esophagitis; E78.2 Mixed hyperlipidemia; G62.9 Polyneuropathy, unspecified; T38.0X5A Adverse effect of glucocorticoids and synthetic analogues, initial encounter; N32.81 Overactive bladder; K44.9 Diaphragmatic hernia without obstruction or gangrene; E27.8 Other specified disorders of adrenal gland; E83.42 Hypomagnesemia; B96.4 Proteus (mirabilis) (morganii) as the cause of diseases classified elsewhere; Z86.73 Personal history of transient ischemic attack (TIA), and cerebral infarction without residual deficits; Z87.440 Personal history of urinary (tract) infections; Z86.16 Personal history of COVID-19; Z88.2 Allergy status to sulfonamides; Z91.030 Bee allergy status; Z87.891 Personal history of nicotine dependence; Z79.02 Long term (current) use of antithrombotics/antiplatelets
CPT/HCPCS: 36415; 51798; 71045; 74176; 78582; 80053; 81001; 82150; 83605; 83690; 83735; 83880; 84100; 84484; 85025; 85379; 85610; 85730; 87040; 87077; 87086; 87186; 96361; 96365; 96366; 96367; 96372; 96375; 99285

== ENCOUNTER → 2024-08-07 | Outpatient (CLI) | payer MEDICARE ==
--- NOTE | 2024-08-07 14:29 | P.PAINPG ---
PQRS Measure Charge Sheet Comment: HISTORY OF PRESENT ILLNESS: A 78 yr old female presents today w severe and chronic L Ankle and Foot pain > 3 mo secondary to DJD for evaluation of CT scan L Ankle and medication refills. Pt states pain level is provoked at 8 /10 in intensity, constant, localized in the L ankle, achy in character without shooting pain. Pain is provoked by weight bearing. Pain is alleviated by PT x 6 wks which ended in Jan 2024, physician guided home stretches daily since Jan 2024, ice, medications, topical, use of a walker for ambulatory assistance, repositioning and rest . Interventional procedures include L Ankle Surgery w Hardware Medications include Neurontin, Tyl, BioFreeze REVIEW OF ORGAN SYSTEMS: CONSTITUTIONAL: No fevers or chills. No recent weight loss. NEUROLOGICAL: + numbness and tingling along the distal extremities. No seizure disorders or headaches. MUSCULOSKELETAL: + pain PSYCHIATRIC: Denies current depression or suicidal thoughts. Physical Examinations : Constitutional : Cooperative , not in acute distress . Neurologic : Cranial nerve II to XII intact. No focal neurological deficits. Psychiatric : alert & oriented x 3. Matching mood & appropriate affect. Judgment & insight intact. Musculoskeletal : Cervical Spine Motor strength in the deltoid and biceps: Normal right side. Normal Left side Motor strength biceps and the wrist extensors: Normal right side . Normal left side Motor strength in the triceps muscle: Normal right side. Normal left side Deep tendon reflexes: Normal at the biceps. Normal at Brachioradialis. Normal at triceps Vertebral body tenderness to deep palpation over Cervical facet loading test: positive bilaterally Spurling test: positive bilaterally Neck distraction test: positive bilaterally Tiara sign: positive bilaterally Lumbar spine Motor strength lower extremities ,thigh and legs 5/5 Right side , 5/5 Left side Deep tendon reflexes : Normal Knee Jerk. Normal Ankle Jerk Vertebral body tenderness over Olvera Test positive Lumbar facet Loading Test: positive Right / positive Left Range of motion of the lumbar spine Flexion 30 degrees, extension 10 degrees Straight Leg Raise test: Left/ Right positive at degrees Leonel test: positive right / positive left. Severe tenderness over the Sacroiliac joint on the Right / Left sides Gaenslen test: positive bilaterally Seated flexion test: positive bilaterally. Sacral spine : +L ankle incisional scars intact w 1+ ankle edema Severe tenderness over the Sacroiliac joint: right side / left side Range of motion: Flexion of the lumbar spine <60 degrees Range of motion: Extension of the lumbar spine <20 degrees Gaenslen's Test positive Leonel test: positive right side / left side Thigh Thrust Test Sacral Thrust Test Imaging: X ray of L ankle and L foot from 01/29/[address] non contrast L ankle from 04/29/24 reviewed Assessment/ Plan : L post traumatic tibiotalar DJD Recommendation of medication management. Tramadol 50mg #30 w 2 RF. UDS from 06/04/24 reviewed and consistent. Opiate/ narcotic agreement signed 04/09/24. Use, side effects adverse reactions, safe storage discussed. All questions answered. I have spent greater than 30 minutes on patient care today. Dr Rdz was available by phone for the evaluation of this patient. The time was used to review the medical records including relevant urine studies and Prescription history (MAPs), review of the available imaging, evaluation and examination of the patient, coordination of care with the medical staff and if applicable referring physicians, as well as creation of the medical record PQRS Narrative: Smoking Status Never smoker Hx Alcohol Use (MH) No Home Medications: Ambulatory Orders Atorvastatin [Lipitor] 20 mg PO HS 10/09/19 Clopidogrel [Plavix] 75 mg PO DAILY 10/09/19 Sertraline [Zoloft] 200 mg PO HS 10/09/19 ARIPiprazole [Abilify] 2 mg PO HS 07/12/24 Atomoxetine HCl [Strattera] 80 mg PO DAILY 07/12/24 Cholecalciferol [Vitamin D3 (25 Mcg = 1000 Iu)] 25 mcg PO DAILY 07/12/24 Docusate [Colace] 100 mg PO HS 07/12/24 Donepezil [Aricept] 10 mg PO HS 07/12/24 Folic Acid 1 mg PO DAILY 07/12/24 Gabapentin [Neurontin] 100 mg PO BID 07/12/24 Losartan Potassium [Cozaar] 100 mg PO DAILY 07/12/24 Melatonin 10 mg PO HS 07/12/24 Metoprolol Succinate (ER) [Toprol XL] 50 mg PO HS 07/12/24 Trospium Chloride [Sanctura XR] 60 mg PO DAILY 07/12/24 modafiniL [Provigil] 100 mg PO DAILY 07/12/24 traMADol HCL 50 mg PO DAILY 07/12/24 cefuroxime axetiL [Ceftin] 500 mg PO BID #28 tab 07/16/24 Controlled Substance Measures - Controlled Substance Measures Is patient prescribed a controlled substance at discharge?: Yes When asked, does pt state using other controlled substances?: Yes If prescribed controlled substance>3 days was MAPS reviewed?: Yes
[2024-08-07 14:44] VITALS: BP 127/82; PULSE 96; RESP 19; TEMP 97.6
== END ==
LOC: PNWHC3 13:12
PROVIDERS: ATTEND Specialist
DX: M19.172 Post-traumatic osteoarthritis, left ankle and foot (principal); Z88.2 Allergy status to sulfonamides; Z91.030 Bee allergy status
CPT/HCPCS: 99211

== ENCOUNTER → 2024-11-06 | Outpatient (CLI) | payer MEDICARE ==
[2024-11-06 12:32] VITALS: BP 181/84; PULSE 76; RESP 16; TEMP 97.1
--- NOTE | 2024-11-06 14:21 | P.PAINPG ---
PQRS Measure Charge Sheet Comment: HISTORY OF PRESENT ILLNESS: A 79 yr old female presents today w severe and chronic L Ankle and Foot pain > 3 mo secondary to DJD for medication refills. Pt states pain level is provoked at 8 /10 in intensity, constant, localized in the L ankle, achy in character without shooting pain. Pain is provoked by weight bearing. Pain is alleviated by PT x 6 wks which ended in Jan 2024, physician guided home stretches daily since Jan 2024, ice, medications, topical, use of a walker for ambulatory assistance, repositioning and rest . Interventional procedures include L Ankle Surgery w Hardware Medications include Neurontin, Tyl, BioFreeze REVIEW OF ORGAN SYSTEMS: CONSTITUTIONAL: No fevers or chills. No recent weight loss. NEUROLOGICAL: + numbness and tingling along the distal extremities. No seizure disorders or headaches. MUSCULOSKELETAL: + pain PSYCHIATRIC: Denies current depression or suicidal thoughts. Physical Examinations : Constitutional : Cooperative , not in acute distress . Neurologic : Cranial nerve II to XII intact. No focal neurological deficits. Psychiatric : alert & oriented x 3. Matching mood & appropriate affect. Judgment & insight intact. Musculoskeletal : Cervical Spine Motor strength in the deltoid and biceps: Normal right side. Normal Left side Motor strength biceps and the wrist extensors: Normal right side . Normal left side Motor strength in the triceps muscle: Normal right side. Normal left side Deep tendon reflexes: Normal at the biceps. Normal at Brachioradialis. Normal at triceps Vertebral body tenderness to deep palpation over Cervical facet loading test: positive bilaterally Spurling test: positive bilaterally Neck distraction test: positive bilaterally Tiara sign: positive bilaterally Lumbar spine Motor strength lower extremities ,thigh and legs 5/5 Right side , 5/5 Left side Deep tendon reflexes : Normal Knee Jerk. Normal Ankle Jerk Vertebral body tenderness over Olvera Test positive Lumbar facet Loading Test: positive Right / positive Left Range of motion of the lumbar spine Flexion 30 degrees, extension 10 degrees Straight Leg Raise test: Left/ Right positive at degrees Leonel test: positive right / positive left. Severe tenderness over the Sacroiliac joint on the Right / Left sides Gaenslen test: positive bilaterally Seated flexion test: positive bilaterally. Sacral spine : +L ankle incisional scars intact w 1+ ankle edema Severe tenderness over the Sacroiliac joint: right side / left side Range of motion: Flexion of the lumbar spine <60 degrees Range of motion: Extension of the lumbar spine <20 degrees Gaenslen's Test positive Leonel test: positive right side / left side Thigh Thrust Test Sacral Thrust Test Imaging: X ray of L ankle and L foot from 01/29/[address] non contrast L ankle from 04/29/24 reviewed Assessment/ Plan : L post traumatic tibiotalar DJD Recommendation of L Ankle Nerve Block #1 and medication management. Risks, benefits of procedure discussed and patient verbalized understanding. Tramadol 50mg #30 w 2 RF. UDS from 06/04/24 reviewed and consistent. Opiate/ narcotic agreement signed 04/09/24. Use, side effects adverse reactions, safe storage discussed. All questions answered. I have spent greater than 30 minutes on patient care today. Dr Rdz was available by phone for the evaluation of this patient. The time was used to review the medical records including relevant urine studies and Prescription history (MAPs), review of the available imaging, evaluation and examination of the patient, coordination of care with the medical staff and if applicable referring physicians, as well as creation of the medical record PQRS Narrative: Smoking Status Never smoker Narcotic Agreement Date Signed 08/07/24 Hx Alcohol Use (MH) No Home Medications: Ambulatory Orders Atorvastatin [Lipitor] 20 mg PO HS 10/09/19 Clopidogrel [Plavix] 75 mg PO DAILY 10/09/19 Sertraline [Zoloft] 200 mg PO HS 10/09/19 ARIPiprazole [Abilify] 2 mg PO HS 07/12/24 Atomoxetine HCl [Strattera] 80 mg PO DAILY 07/12/24 Cholecalciferol [Vitamin D3 (25 Mcg = 1000 Iu)] 25 mcg PO DAILY 07/12/24 Docusate [Colace] 100 mg PO HS 07/12/24 Donepezil [Aricept] 10 mg PO HS 07/12/24 Folic Acid 1 mg PO DAILY 07/12/24 Gabapentin [Neurontin] 100 mg PO BID 07/12/24 Losartan Potassium [Cozaar] 100 mg PO DAILY 07/12/24 Melatonin 10 mg PO HS 07/12/24 Metoprolol Succinate (ER) [Toprol XL] 50 mg PO HS 07/12/24 Trospium Chloride [Sanctura XR] 60 mg PO DAILY 07/12/24 modafiniL [Provigil] 100 mg PO DAILY 07/12/24 cefuroxime axetiL [Ceftin] 500 mg PO BID #28 tab 07/16/24 traMADol HCL 50 mg PO DAILY 90 Days #90 tab 08/07/24 Controlled Substance Measures - Controlled Substance Measures Is patient prescribed a controlled substance at discharge?: Yes When asked, does pt state using other controlled substances?: No If prescribed controlled substance>3 days was MAPS reviewed?: Yes
== END ==
LOC: PNWHC3 09:41
PROVIDERS: ATTEND Specialist
DX: M19.072 Primary osteoarthritis, left ankle and foot (principal); Z88.2 Allergy status to sulfonamides; Z91.030 Bee allergy status
CPT/HCPCS: 99211

== ENCOUNTER 2024-11-25 10:21 | Day surgery (SDC) | payer MEDICARE ==
[2024-11-24 09:15] VITALS: BMI 37.1
[2024-11-25] MEDS ORDERED: LACTATED RINGERS 1,000 ML IV SCH (10:53)
[2024-11-25 11:02] VITALS: RESP 16; TEMP 97.3
[2024-11-25] MEDS: ALPRAZolam 0.25 MG TAB PO STA (11:19)
[2024-11-25] MEDS ORDERED: ROPIVACAINE 5MG/ML 20ML VIAL ONE (12:38)
[2024-11-25] MEDS ORDERED: methylPREDNISolone ACETATE 80 MG/ML 1 ML VIAL ONE (12:38)
--- NOTE | 2024-11-25 12:56 | P.PCN ---
Date of Procedure: 11/25/24 Procedure(s) Performed: preop Diagnosis : 1-chronic left foot and left ankle pain.2-post traumatic tibialtabular degenerative joint disease post op Diadnosis : Same as preop diagnosis procedure: Left ankle block ( involve block of the five nerves that innervate the ankle 1- saphenous nerve 2 -posterior tibial nerve . 3- superficial peroneal nerve 4- deep peroneal nerve 5- sural nerve complications: none Indication for the procedure: The patient with a history of chronic left foot pain , started after traumatic injury to the left foot, we discussed with the patient the option of doing Left ankle block procedure risk and benefit, including but not limited to risk of infection and bleeding, and ALLERGIC reaction to the medication and not complete pain relief discussed with the patient and she agreed with the preceding . Description of the procedure; the Left ankle area prepped with chlorhexidine 3 times. Then under strict sterile technique using the 25-gauge needle first I did the Left posterior tibial nerve block the needle placed and directed anteriorly at the cephalic border of the medial malleolus, just medial to the Achilles tendon 5 ML of 0.5% ropivacaine mixed with 20 mg of Depo-Medrol injected after negative aspiration then after that , I did the Left saphenous nerve block by injecting 5 ML at the location of the Left saphenous nerve using 25-gauge needle 0.5% ropivacaine injected after negative aspiration, then the deep peroneal nerve block done by placing the 25-gauge needle between the tendon of the anterior tibial and the extensor Hallucis longus muscles , a total of 3 mL of 0.5% ropivacaine mixed with 20 mg of Depo-Medrol injected after negative aspiration, then after that I blocked the superficial peroneal nerve , by using 25-gauge needle, the skin infiltration of the subcutaneous tissue between the medial malleolus and the lateral malleolus, finally I did the Left sural nerve block by injecting 5 ML of 0.5% ropivacaine 0.5% anterior laterally immediately lateral to the Achilles tendon at the cephalic border of the lateral malleolus ,after negative aspirations, patient tolerated the procedure well without any complication and discharged home in stable condition , and she will follow up pain clinic in 2-4 weeks 60 mg of Depo-Medrol used for the procedure, and 23 mL of ropivacaine 0.5%
[2024-11-25 13:17] VITALS: BP 149/89; PULSE 87
== END 2024-11-25 13:31 | disposition home or self-care (01) ==
LOC: ORPAIN 10:21
PROVIDERS: ATTEND Specialist
DX: M25.572 Pain in left ankle and joints of left foot (principal); Z88.2 Allergy status to sulfonamides; Z91.030 Bee allergy status
CPT/HCPCS: 64450; J2795; J1010

== ENCOUNTER → 2024-12-24 | Outpatient (CLI) | payer MEDICARE ==
[2024-12-24 10:44] VITALS: BP 175/97; PULSE 106; RESP 16; TEMP 97.3
--- NOTE | 2024-12-24 11:54 | XR ---
EXAMINATION TYPE: XR knee limited RT DATE OF EXAM: 12/24/2024 CLINICAL INDICATION: Female, 79 years old with history of M17.9 OA KNEE UNSPECIFIED, pain TECHNIQUE: Frontal and lateral views of the knee were obtained. COMPARISON: None. FINDINGS: There is no acute fracture/dislocation evident in the right knee. Severe narrowing and mod erate spurring patellofemoral compartment. Mild to moderate narrowing and spurring medial and latera l tibiofemoral compartments. Some heterotopic ossification medially is seen. IMPRESSION: As above. [facility], , 12/24/2024 11:51 AM
--- NOTE | 2024-12-24 16:02 | P.PAINPG ---
PQRS Measure Charge Sheet Comment: HISTORY OF PRESENT ILLNESS: A 79 yr old female presents today w severe and chronic L Ankle and R knee pain > 3 mo secondary to DJD for medication refills and evaluation s/p L Ankle Nerve Block #1. Pt states she experienced 80 % pain relief x 4 wks s/p procdure. Pt states pain level is provoked at 8 /10 in intensity, intermittent, localized in theR knee, achy in character without shooting pain. Pain is provoked by weight bearing. Pain is alleviated by PT x 6 wks which ended in Jan 2024, physician guided home stretches daily since Jan 2024, ice, medications, topical, use of a walker for ambulatory assistance, repositioning and rest . Interventional procedures include L Ankle Surgery w Hardware, L Ankle Nerve Block x1 Medications include Neurontin, Tyl, BioFreeze REVIEW OF ORGAN SYSTEMS: CONSTITUTIONAL: No fevers or chills. No recent weight loss. NEUROLOGICAL: + numbness and tingling along the distal extremities. No seizure disorders or headaches. MUSCULOSKELETAL: + pain PSYCHIATRIC: Denies current depression or suicidal thoughts. Physical Examinations : Constitutional : Cooperative , not in acute distress . Neurologic : Cranial nerve II to XII intact. No focal neurological deficits. Psychiatric : alert & oriented x 3. Matching mood & appropriate affect. Judgment & insight intact. Musculoskeletal : Cervical Spine Motor strength in the deltoid and biceps: Normal right side. Normal Left side Motor strength biceps and the wrist extensors: Normal right side . Normal left side Motor strength in the triceps muscle: Normal right side. Normal left side Deep tendon reflexes: Normal at the biceps. Normal at Brachioradialis. Normal at triceps Vertebral body tenderness to deep palpation over Cervical facet loading test: positive bilaterally Spurling test: positive bilaterally Neck distraction test: positive bilaterally Tiara sign: positive bilaterally Lumbar spine Motor strength lower extremities ,thigh and legs 5/5 Right side , 5/5 Left side Deep tendon reflexes : Normal Knee Jerk. Normal Ankle Jerk Vertebral body tenderness over Olvera Test positive Lumbar facet Loading Test: positive Right / positive Left Range of motion of the lumbar spine Flexion 30 degrees, extension 10 degrees Straight Leg Raise test: Left/ Right positive at degrees Leonel test: positive right / positive left. Severe tenderness over the Sacroiliac j oint on the Right / Left sides Gaenslen test: positive bilaterally Seated flexion test: positive bilaterally. Sacral spine : +L ankle incisional scars intact w 1+ ankle edema Severe tenderness over the Sacroiliac joint: right side / left side Range of motion: Flexion of the lumbar spine <60 degrees Range of motion: Extension of the lumbar spine <20 degrees Gaenslen's Test positive Leonel test: positive right side / left side Thigh Thrust Test Sacral Thrust Test Imaging: X ray of L ankle and L foot from 01/29/[address] non contrast L ankle from 04/29/24 reviewed Assessment/ Plan : L post traumatic tibiotalar DJD Recommendation of R knee x ray, PT x 6 wks M17.9 and medication management. Tramadol 50mg #30 w 2 RF. UDS from 06/04/24 reviewed and consistent. Opiate/ narcotic agreement signed 04/09/24. Use, side effects adverse reactions, safe storage discussed. All questions answered. I have spent greater than 30 minutes on patient care today. Dr Rdz was available by phone for the evaluation of this patient. The time was used to review the medical records including relevant urine studies and Prescription history (MAPs), review of the available imaging, evaluation and examination of the patient, coordination of care with the medical staff and if applicable referring physicians, as well as creation of the medical record - Pain Location Right Knee Non-Pharmacological Interventions: Position/Reposition Pharmacological Interventions: PRN Medication, Scheduled Medication, Topical Medication PQRS Narrative: Smoking Status Never smoker Narcotic Agreement Date Signed 08/07/24 Hx Alcohol Use (MH) No Home Medications: Ambulatory Orders Atorvastatin [Lipitor] 20 mg PO HS 10/09/19 Clopidogrel [Plavix] 75 mg PO DAILY 10/09/19 ARIPiprazole [Abilify] 2 mg PO HS 07/12/24 Cholecalciferol [Vitamin D3 (25 Mcg = 1000 Iu)] 25 mcg PO DAILY 07/12/24 Docusate [Colace] 100 mg PO HS 07/12/24 Donepezil [Aricept] 10 mg PO HS 07/12/24 Folic Acid 1 mg PO DAILY 07/12/24 Gabapentin [Neurontin] 100 mg PO BID 07/12/24 Losartan Potassium [Cozaar] 100 mg PO DAILY 07/12/24 Melatonin 10 mg PO HS PRN 07/12/24 Metoprolol Succinate (ER) [Toprol XL] 50 mg PO HS 07/12/24 modafiniL [Provigil] 100 mg PO DAILY 07/12/24 Atomoxetine HCl [Strattera] 80 mg PO DAILY 11/24/24 Ferrous Sulfate [Iron] 325 mg PO BID 11/24/24 Mirabegron [Myrbetriq] 50 mg PO DAILY 11/24/24 Multivitamins, Thera [Multivitamin (formulary)] 1 tab PO DAILY 11/24/24 Sertraline HCl 200 mg PO HS 11/24/24 traMADol HCL [traMADol HCL ER] 100 mg PO HS 11/24/24 Controlled Substance Measures - Controlled Substance Measures Is patient prescribed a controlled substance at discharge?: No
== END ==
LOC: PNWHC3 10:17
PROVIDERS: ATTEND Specialist
DX: M19.179 Post-traumatic osteoarthritis, unspecified ankle and foot (principal); Z88.2 Allergy status to sulfonamides; Z91.030 Bee allergy status
CPT/HCPCS: 99211

== ENCOUNTER → 2025-01-28 | Outpatient (CLI) | payer MEDICARE ==
[2025-01-28 10:20] VITALS: BP 157/90; PULSE 83; RESP 17; TEMP 96.8
--- NOTE | 2025-01-28 16:14 | P.PAINPG ---
Objective - Vital Signs Vital signs: Vital Signs Temp 96.8 F L 01/28/25 10:14 Pulse 83 01/28/25 10:14 Resp 17 01/28/25 10:14 BP 157/90 01/28/25 10:14 Pulse Ox 100 01/28/25 10:14 FiO2 Intake & Output 01/27/25 01/28/25 01/28/25 18:59 06:59 18:59 Weight 117.934 kg PQRS Measure Charge Sheet Mode of Arrival: Ambulatory Comment: HISTORY OF PRESENT ILLNESS: A 79 yr old female presents today w severe and chronic L Ankle and R knee pain > 3 mo secondary to DJD for medication refills. Pt states pain level is provoked at 8 /10 in intensity, intermittent, localized in the L ankle, achy in character without shooting pain. Pain is provoked by weight bearing. Pain is alleviated by PT x 6 wks which ended in Jan 2024, physician guided home stretches daily since Jan 2024, ice, medications, topical, use of a walker for ambulatory assistance, repositioning and rest . Interventional procedures include L Ankle Surgery w Hardware, L Ankle Nerve Block x1 Medications include Neurontin, Tyl, BioFreeze REVIEW OF ORGAN SYSTEMS: CONSTITUTIONAL: No fevers or chills. No recent weight loss. NEUROLOGICAL: + numbness and tingling along the distal extremities. No seizure disorders or headaches. MUSCULOSKELETAL: + pain PSYCHIATRIC: Denies current depression or suicidal thoughts. Physical Examinations : Constitutional : Cooperative , not in acute distress . Neurologic : Cranial nerve II to XII intact. No focal neurological deficits. Psychiatric : alert & oriented x 3. Matching mood & appropriate affect. Judgment & insight intact. Musculoskeletal : Cervical Spine Motor strength in the deltoid and biceps: Normal right side. Normal Left side Motor strength biceps and the wrist extensors: Normal right side . Normal left side Motor strength in the triceps muscle: Normal right side. Normal left side Deep tendon reflexes: Normal at the biceps. Normal at Brachioradialis. Normal at triceps Vertebral body tenderness to deep palpation over Cervical facet loading test: positive bilaterally Spurling test: positive bilaterally Neck distraction test: positive bilaterally Tiara sign: positive bilaterally Lumbar spine Motor strength lower extremities ,thigh and legs 5/5 Right side , 5/5 Left side Deep tendon reflexes : Normal Knee Jerk. Normal Ankle Jerk Vertebral body tenderness over Olvera Test positive Lumbar facet Loading Test: positive Right / positive Left Range of motion of the lumbar spine Flexion 30 degrees, extension 10 degrees Straight Leg Raise test: Left/ Right positive at degrees Leonel test: positive right / positive left. Severe tenderness over the Sacroiliac joint on the Right / Left sides Gaenslen test: positive bilaterally Seated flexion test: positive bilaterally. Sacral spine : +L ankle incisional scars intact w 1+ ankle edema, Neg Haydee's Sign Severe tenderness over the Sacroiliac joint: right side / left side Range of motion: Flexion of the lumbar spine <60 degrees Range of motion: Extension of the lumbar spine <20 degrees Gaenslen's Test positive Leonel test: positive right side / left side Thigh Thrust Test Sacral Thrust Test Imaging: X ray of L ankle and L foot from 01/29/[address] non contrast L ankle from 04/29/24 reviewed Assessment/ Plan : L post traumatic tibiotalar DJD Recommendation of medication management and L Ankle Nerve Block #3. Will follow up w PCP to evaluate for possible blood clot in LLE tomorrow w daughter. Risks, benefits of procedure discussed and pt verbalized understanding. Tramadol 50mg #30 w 2 RF. UDS 01/28/25. Opiate/ narcotic agreement signed 04/09/24. Use, side effects adverse reactions, safe storage discussed. All questions answered. I have spent greater than 30 minutes on patient care today. Dr Rdz was available by phone for the evaluation of this patient. The time was used to review the medical records including relevant urine studies and Prescription history (MAPs), review of the available imaging, evaluation and examination of the patient, coordination of care with the medical staff and if applicable referring physicians, as well as creation of the medical record PQRS Narrative: Smoking Status Never smoker Narcotic Agreement Date Signed 08/07/24 Blood Pressure 157/90 Pain Intensity [Left Ankle] 8 Scale Used Numeric (1 - 10) Hx Alcohol Use (MH) No Home Medications: Ambulatory Orders Atorvastatin [Lipitor] 20 mg PO HS 10/09/19 Clopidogrel [Plavix] 75 mg PO DAILY 10/09/19 ARIPiprazole [Abilify] 2 mg PO HS 07/12/24 Cholecalciferol [Vitamin D3 (25 Mcg = 1000 Iu)] 25 mcg PO DAILY 07/12/24 Docusate [Colace] 100 mg PO HS 07/12/24 Donepezil [Aricept] 10 mg PO HS 07/12/24 Folic Acid 1 mg PO DAILY 07/12/24 Gabapentin [Neurontin] 100 mg PO BID 07/12/24 Losartan Potassium [Cozaar] 100 mg PO DAILY 07/12/24 Melatonin 10 mg PO HS PRN 07/12/24 Metoprolol Succinate (ER) [Toprol XL] 50 mg PO HS 07/12/24 modafiniL [Provigil] 100 mg PO DAILY 07/12/24 Atomoxetine HCl [Strattera] 80 mg PO DAILY 11/24/24 Ferrous Sulfate [Iron] 325 mg PO BID 11/24/24 Mirabegron [Myrbetriq] 50 mg PO DAILY 11/24/24 Multivitamins, Thera [Multivitamin (formulary)] 1 tab PO DAILY 11/24/24 Sertraline HCl 200 mg PO HS 11/24/24 traMADol HCl [Ultram] 50 mg PO HS PRN 30 Days #30 tab 01/28/25 Controlled Substance Measures - Controlled Substance Measures Is patient prescribed a controlled substance at discharge?: Yes When asked, does pt state using other controlled substances?: No If prescribed controlled substance>3 days was MAPS reviewed?: Yes
== END ==
LOC: PNWHC3 10:06
PROVIDERS: ATTEND Specialist
DX: M19.172 Post-traumatic osteoarthritis, left ankle and foot (principal); Z88.2 Allergy status to sulfonamides; Z91.030 Bee allergy status
CPT/HCPCS: 80307; 99211

== ENCOUNTER → 2025-01-30 | Outpatient (CLI) | payer MEDICARE ==
--- NOTE | 2025-01-30 11:13 | US ---
EXAMINATION TYPE: US kidneys/renal and bladder DATE OF EXAM: 01/30/2025 COMPARISON: CT 07/12/24 CLINICAL INDICATION: Female, 79 years old with history of N18.32 CHRONIC KIDNEY DISEASE STAGE 3B; hyd ro in July, F/U, CKD TECHNIQUE: Grayscale imaging of the bilateral kidneys and urinary bladder: FINDINGS: EXAM MEASUREMENTS: Right Kidney: 10.0x4.2x4.7 cm Left Kidney: 8.8x4.3x5.1 cm Right Kidney: There is a 1.0x1.0x1.3cm heterogenous hypoechoic exophytic area noted at the inferior l ateral pole. Cortical thinning Left Kidney: Small 0.4 cm echogenic focus superior pole. No evidence of residual pyelectasis or hydro nephrosis. Cortical thinning Left adrenal lesion appears similar to prior CT measuring 1.7x1.8x2.3 cm Bladder: wnl, bladder calculus previously noted not visualized on today's exam. Bilateral Jets seen: No Exam limited by body habitus and bowel gas. Difficult to obtain color doppler flow due to attenuation . There is no evidence for hydronephrosis at this point in time. The urinary bladder is anechoic. IMPRESSION: 1. Small complex cyst mid to inferior right renal cortex. 2. Left adrenal gland prominence, present on prior CT. [facility], , 01/30/2025 11:11 AM
== END | disposition home or self-care (01) ==
LOC: RADUSWWP 10:01
PROVIDERS: ATTEND Internal Medicine
DX: N18.32 Chronic kidney disease, stage 3b (principal); N28.1 Cyst of kidney, acquired
CPT/HCPCS: 76770

== ENCOUNTER 2025-02-17 10:53 | Day surgery (SDC) | payer MEDICARE ==
[2025-02-16 12:21] VITALS: BMI 41.3
[~2025-02-17 10:53] MED LIST: LACTATED RINGERS 1,000 ML IV SCH
[2025-02-17 12:33] VITALS: TEMP 97.6
[2025-02-17] MEDS ORDERED: ROPIVACAINE 5 MG/ML 30 ML VIAL ONE (13:11)
[2025-02-17] MEDS ORDERED: methylPREDNISolone ACETATE 40 MG/ML 1 ML VIAL ONE (13:11)
--- NOTE | 2025-02-17 13:20 | P.PCN ---
Date of Procedure: 02/17/25 Procedure(s) Performed: preop Diagnosis : 1-chronic left foot and left ankle pain.2-post traumatic tibialtabular degenerative joint disease post op Diadnosis : Same as preop diagnosis procedure: Left ankle block ( involve block of the five nerves that innervate the ankle 1- saphenous nerve 2 -posterior tibial nerve . 3- superficial peroneal nerve 4- deep peroneal nerve 5- sural nerve complications: none Indication for the procedure: The patient with a history of chronic left foot pain , started after traumatic injury to the left foot, we discussed with the patient the option of doing Left ankle block procedure risk and benefit, including but not limited to risk of infection and bleeding, and ALLERGIC reaction to the medication and not complete pain relief discussed with the patient and she agreed with the preceding . Description of the procedure; the Left ankle area prepped with chlorhexidine 3 times. Then under strict sterile technique using the 25-gauge needle first I did the Left posterior tibial nerve block the needle placed and directed anteriorly at the cephalic border of the medial malleolus, just medial to the Achilles tendon 5 ML of 0.5% ropivacaine mixed with 20 mg of Depo-Medrol injected after negative aspiration then after that , I did the Left saphenous nerve block by injecting 5 ML at the location of the Left saphenous nerve using 25-gauge needle 0.5% ropivacaine injected after negative aspiration, then the deep peroneal nerve block done by placing the 25-gauge needle between the tendon of the anterior tibial and the extensor Hallucis longus muscles , a total of 5 mL of 0.5% ropivacaine mixed with 20 mg of Depo-Medrol injected after negative aspiration, then after that I blocked the superficial peroneal nerve , by using 25-gauge needle, the skin infiltration of the subcutaneous tissue between the medial malleolus and the lateral malleolus, finally I did the Left sural nerve block by injecting 5 ML of 0.5% ropivacaine 0.5% anterior laterally immediately lateral to the Achilles tendon at the cephalic border of the lateral malleolus ,after negative aspirations, patient tolerated the procedure well without any complication and discharged home in stable condition , and she will follow up pain clinic in 2-4 weeks 40 mg of Depo-Medrol used for the procedure, and 25 mL of ropivacaine 0.5%
[2025-02-17 13:27] VITALS: RESP 14
[2025-02-17 13:42] VITALS: BP 138/65; PULSE 70
== END 2025-02-17 14:02 | disposition home or self-care (01) ==
LOC: ORPAIN 10:53
PROVIDERS: ATTEND Specialist
DX: M25.572 Pain in left ankle and joints of left foot (principal); Z88.2 Allergy status to sulfonamides; Z91.030 Bee allergy status
CPT/HCPCS: 64450; J2795; J1010

== ENCOUNTER → 2025-03-04 | Outpatient (CLI) | payer MEDICARE ==
--- NOTE | 2025-03-04 14:58 | MM ---
Reason for Exam: Screening (asymptomatic). Last mammogram was performed 5 year(s) and 1 month(s) ago. Patient History: Menarche at age 12. First Full-Term at age 26. Postmenopausal. 2019, Benign Stereotactic Core Biopsy on the right side. 01/24/2017, Benign Stereotactic Core Biopsy on the right side. Risk Values: Bisi 5 year model risk: 2.7%. NCI Lifetime model risk: 4.2%. Prior Study Comparison: 07/17/2017 Bilateral Screening Mammogram, [facility]. 07/19/2018 Bilateral Screening Mammogram, [facility]. 01/05/2020 Bilateral Diagnostic Mammogram, [facility]. Tissue Density: There are scattered areas of fibroglandular density. Findings: Analyzed By CAD. Chronic nodularity in the right. Grouped and regional calcifications outer posterior right breast are similar to minimally increased with 2 microclips in this region from prior biopsies. There is no suspicious group of microcalcifications or new suspicious mass in either breast. Overall Assessment: Benign, BI-RAD 2 Management: Screening Mammogram of both breasts in 1 year. Patient should continue monthly self-breast exams. A clinical breast exam by your physician is recommended on an annual basis. This exam should not preclude additional follow-up of suspicious palpable abnormalities. Note on Bisi scores and lifetime risk: 1. A Bisi score greater than 3% is considered moderate risk. If this is the case, consider specialist referral to assess eligibility for a risk reducing agent. 2. If overall lifetime risk for the development of breast cancer is 20% or higher, the patient may qualify for future screening with alternating mammogram and breast MRI. [facility], , 03/04/2025 2:55 PM. Electronically signed and approved by: Davy Leavitt M.D. Radiologist
== END | disposition home or self-care (01) ==
LOC: RADMAMWWP 08:53
PROVIDERS: ATTEND Internal Medicine
DX: Z12.31 Encounter for screening mammogram for malignant neoplasm of breast (principal); R92.323 Mammographic fibroglandular density, bilateral breasts; Z78.0 Asymptomatic menopausal state
CPT/HCPCS: 77063; 77067